=== PATIENT | female | born 1995 | race Caucasian/White ===

== ENCOUNTER 2017-02-21 10:46 | Emergency (ER) | payer OTHER ==
[2017-02-21 11:03] VITALS: BP 142/85; PULSE 98; RESP 20; TEMP 98.1
--- NOTE | 2017-02-21 11:54 | ED ---
General Adult HPI - General Chief complaint: Skin/Abscess/Foreign Body Stated complaint: Rash Time Seen by Provider: 02/21/17 11:20 Source: patient, RN notes reviewed Mode of arrival: ambulatory Limitations: no limitations - History of Present Illness Initial comments: Patient is a 21-year-old female who presents emergency room today with chief complaint of possible bed bugs. She does not that she's noticed some bites to her torso and arms. She states she's noticed them over the last 3 days and very itchy. She states she's look for bed bugs at home has not been able to find any her states she is the only one in the house that has these bites. She denies any other complaints or associated symptoms. Patient denies any recent fever, chills, shortness of breath, chest pain, back pain, abdominal pain, nausea or vomiting, numbness or tingling, dysuria or hematuria, constipation or diarrhea, headaches or visual changes, or any other complaints. - Related Data Home Medications Medication Instructions Recorded Confirmed diphenhydrAMINE [Benadryl] 25 mg PO DAILY PRN 02/21/17 02/21/17 Previous Rx's Medication Instructions Recorded Famotidine [Pepcid] 20 mg PO BID #20 tablet 02/21/17 Hydrocortisone Cream 1 applic TOPICAL TID #1 cream..g. 02/21/17 [Hydrocortisone 1% Cream] diphenhydrAMINE [Benadryl] 1 - 2 tab PO Q6HR PRN #30 capsule 02/21/17 Allergies Allergy/AdvReac Type Severity Reaction Status Date / Time No Known Allergies Allergy Verified 02/21/17 11:05 Review of Systems ROS Statement: Those systems with pertinent positive or pertinent negative responses have been documented in the HPI. ROS Other: All systems not noted in ROS Statement are negative. Past Medical History Past Medical History: No Reported History Additional Past Medical History / Comment(s): History of genital herpes. History of Any Multi-Drug Resistant Organisms: None Reported Past Surgical History: Section Past Anesthesia/Blood Transfusion Reactions: No Reported Reaction Past Psychological History: ADD/ADHD Smoking Status: Current every day smoker Past Alcohol Use History: None Reported Past Drug Use History: None Reported - Past Family History Father Family Medical History: No Reported History General Exam - General Exam Comments Initial Comments: General: The patient is awake and alert, in no distress, and does not appear acutely ill. Eye: Pupils are equal, round and reactive to light, extra-ocular movements are intact. No nystagmus. There is normal conjunctiva bilaterally. No signs of icterus. Ears, nose, mouth and throat: There are moist mucous membranes and no oral lesions. Neck: The neck is supple, there is no tenderness or JVD. Cardiovascular: There is a regular rate and rhythm. No murmur, rub or gallop is appreciated. Respiratory: Lungs are clear to auscultation, respirations are non-labored, breath sounds are equal. No wheezes, stridor, rales, or rhonchi. Musculoskeletal: Normal ROM, no tenderness. Strength 5/5. Sensation intact. Pulses equal bilaterally 2+. Neurological: A&O x 3. CN II-XII intact, There are no obvious motor or sensory deficits. Coordination appears grossly intact. Speech is normal. Skin: Patient does have a few scattered bites throughout the torso and upper extremities. There is an area on the left side of the torso that is linear with 3 bites. Psychiatric: Cooperative, appropriate mood & affect, normal judgment. Limitations: no limitations Course Vital Signs 02/21/17 10:59 Temperature 98.1 F Pulse Rate 98 Respiratory 20 Rate Blood Pressure 142/85 O2 Sat by Pulse 98 Oximetry Medical Decision Making - Medical Decision Making Patient advised that these could be bedbug bites that she should look in the house cleaning everything put anything minutes possible into the dryer to kill days. Advised that she may need: Externally. Advised patient to use hydrocodone cream along with Benadryl and Pepcid for her symptoms. Disposition Clinical Impression: Insect bites Disposition: HOME SELF-CARE Condition: Good Instructions: Insect Bite or Sting (ED) Additional Instructions: Please use medication as discussed. Please follow-up with family doctor in the next 2 days of symptoms have not improved. Please return to emergency room if the symptoms increase or worsen or for any other concerns. Prescriptions: diphenhydrAMINE [Benadryl] 1 - 2 tab PO Q6HR PRN #30 capsule PRN Reason: Allergic Reaction Famotidine [Pepcid] 20 mg PO BID #20 tablet Hydrocortisone Cream [Hydrocortisone 1% Cream] 1 applic TOPICAL TID #1 cream..g. Referrals: None,Stated [Primary Care Provider] - 1-2 days Time of Disposition: 11:53
== END 2017-02-21 12:03 | disposition home or self-care (01) ==
LOC: EC 10:46
DX: S40.861A Insect bite (nonvenomous) of right upper arm, initial encounter (principal); S40.862A Insect bite (nonvenomous) of left upper arm, initial encounter; S30.861A Insect bite (nonvenomous) of abdominal wall, initial encounter; S20.462A Insect bite (nonvenomous) of left back wall of thorax, initial encounter; S20.362A Insect bite (nonvenomous) of left front wall of thorax, initial encounter; S30.860A Insect bite (nonvenomous) of lower back and pelvis, initial encounter; F17.200 Nicotine dependence, unspecified, uncomplicated; W57.XXXA Bitten or stung by nonvenomous insect and other nonvenomous arthropods, initial encounter
CPT/HCPCS: 99282

== ENCOUNTER 2017-08-18 21:37 | Emergency (ER) | payer OTHER ==
[2017-08-18 21:56] VITALS: RESP 18
[2017-08-18] MEDS ORDERED: ACETAMINOPHEN TAB 500 MG TAB PO STA (22:44)
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
--- NOTE | 2017-08-18 23:18 | CT ---
EXAMINATION TYPE: CT facial bones wo con DATE OF EXAM: 08/18/2017 COMPARISON: NONE HISTORY: Pain CT DLP: mGycm Automated exposure control for dose reduction was used. TECHNIQUE: CT scan of the sinuses is performed without contrast, axial images are obtained, coronal r eformatted images are also reviewed. FINDINGS: The orbital margins are intact. There is no evidence of blowout fracture. There is fairly n ormal aeration of the paranasal sinuses. The mandibular ring appears intact. The maxilla appears inta ct. Nasal bone appears intact. Zygomatic arches appear normal. There is no evidence of retro-orbital mass. The globes appear symmetric. There is soft tissue swelling anterior to the right zygoma and rig ht maxilla. IMPRESSION: Right-sided soft tissue swelling. No fracture seen.
--- NOTE | 2017-08-18 23:19 | CT ---
EXAMINATION TYPE: CT brain wo con DATE OF EXAM: 08/18/2017 COMPARISON: NONE HISTORY: Pain CT DLP: mGycm. Automated Exposure Control for Dose Reduction was Utilized. TECHNIQUE: CT scan of the head is performed without contrast. FINDINGS: The ventricles and sulci appear normal. There is no mass effect nor midline shift. There is no sign of intracranial hemorrhage. The calvarium appears intact. There is no evidence for fracture. Skull base appears intact. CONCLUSION: Negative CT scan of the brain.
--- NOTE | 2017-08-18 23:21 | XR ---
EXAMINATION TYPE: XR hand complete RT DATE OF EXAM: 08/18/2017 COMPARISON: NONE HISTORY: Right hand pain TECHNIQUE: 3 views FINDINGS: I see no fracture nor dislocation. Joint spaces are normal. Metacarpals are intact. There a re no erosions. IMPRESSION: Negative right hand exam.
[2017-08-18 23:36] VITALS: BP 114/63; PULSE 94; TEMP 98.3
== END 2017-08-18 23:41 | disposition home or self-care (01) ==
LOC: EC 21:37
DX: H11.31 Conjunctival hemorrhage, right eye (principal); S00.83XA Contusion of other part of head, initial encounter; S60.221A Contusion of right hand, initial encounter; F17.200 Nicotine dependence, unspecified, uncomplicated; Y04.8XXA Assault by other bodily force, initial encounter; Y92.89 Other specified places as the place of occurrence of the external cause
CPT/HCPCS: 70450; 70486; 99284

== ENCOUNTER → 2017-08-20 | Outpatient (CLI) | payer OTHER ==
[2017-08-22 15:21] LABS: Hepatitis B Virus DNA Not detected (Not detected); Hepatitis B Virus DNA, Quant <10 IU/mL (<10); Log HBV IU/mL <1.00 (<1.00)
== END | disposition home or self-care (01) ==
LOC: LABWHC1 15:27
PROVIDERS: ATTEND Pediatrics Adolescent Medicine
DX: Z20.2 Contact with and (suspected) exposure to infections with a predominantly sexual mode of transmission (principal); Z20.5 Contact with and (suspected) exposure to viral hepatitis
CPT/HCPCS: 36415; 87517; 87521

== ENCOUNTER → 2017-10-24 | Outpatient (CLI) | payer OTHER | LOC: LABWHC1 09:57 | PROVIDERS: ATTEND Pediatrics Adolescent Medicine | DX: Z20.2 Contact with and (suspected) exposure to infections with a predominantly sexual mode of transmission (principal); Z20.5 Contact with and (suspected) exposure to viral hepatitis | CPT/HCPCS: 36415; 87521 ==

== ENCOUNTER 2017-12-24 23:10 | Emergency (ER) | payer OTHER ==
[2017-12-25 00:16] VITALS: RESP 18
[2017-12-25 01:42] LABS: Appearance,Urine Cloudy (Clear); Bacteria,Urine Rare /hpf; Bilirubin,Urine Negative (Negative); Blood,Urine Negative (Negative); Budding Yeast,Urine Occasional /hpf; Color,Urine Yellow; Glucose,Urine (UA) Negative (Negative); Ketones,Urine 2+ (Negative); Leukocyte Esterase,Urine Negative (Negative); Mucus,Urine Many /hpf; Nitrite,Urine Negative (Negative); PH, Urine 5.5 (5.0-8.0); Protein,Urine Trace (Negative); RBC,Urine 1 /hpf (0-5); Specific Gravity,Urine 1.021 (1.001-1.035); Squamous Epithelial Cell,Urine 9 /hpf (0-4); Urobilinogen,Urine <2.0 mg/dL (<2.0); WBC,Urine 2 /hpf (0-5)
[2017-12-25] MEDS ORDERED: SODIUM CHLORIDE 0.9% 1,000 ML IV STA (02:26)
--- NOTE | 2017-12-25 02:28 | ED ---
Female Urogenital HPI - General Chief complaint: Urogenital Stated complaint: Discharge-8 wks pg Time Seen by Provider: 12/25/17 02:06 Source: patient, RN notes reviewed Mode of arrival: ambulatory Limitations: no limitations - History of Present Illness Initial comments: This is a 22-year-old female, currently 8 weeks , who presents to the emergency department with chief complaint of abnormal vaginal discharge. Patient states that her last menstrual period was at the end of October. She states that she has not yet followed up with an OVEN HEATER but did have a positive test. Patient states that she has been experiencing daily nausea and vomiting. She states that she has been having random body aches and that today she developed an orange vaginal discharge. She denies any abdominal pain, fevers or chills, chest pain or shortness of breath. Patient has not yet had an ultrasound. - Related Data Previous Rx's Medication Instructions Recorded metroNIDAZOLE [Flagyl] 500 mg PO BID #14 tab 05/16/17 Allergies Allergy/AdvReac Type Severity Reaction Status Date / Time No Known Allergies Allergy Verified 12/25/17 00:16 Review of Systems ROS Statement: Those systems with pertinent positive or pertinent negative responses have been documented in the HPI. ROS Other: All systems not noted in ROS Statement are negative. Past Medical History Past Medical History: No Reported History Additional Past Medical History / Comment(s): History of genital herpes. History of Any Multi-Drug Resistant Organisms: None Reported Past Surgical History: Section Past Anesthesia/Blood Transfusion Reactions: No Reported Reaction Past Psychological History: ADD/ADHD Smoking Status: Former smoker Past Alcohol Use History: None Reported Past Drug Use History: None Reported - Past Family History Father Family Medical History: No Reported History General Exam - General Exam Comments Initial Comments: General: Awake and alert, well-developed; in no apparent distress. HEENT: Head atraumatic, normocephalic. Pupils are equal, round and reactive to light. Extraocular movements intact. Oropharynx moist without erythema or exudate. Neck: Supple. Normal ROM. Cardiovascular: Regular rate and rhythm. No murmurs, rubs or gallops. Chest symmetrical. Respiratory: Lungs clear to auscultation bilaterally. No wheezes, rales or rhonchi. Normal respiratory effort with no use of accessory muscles. Abdomen: Soft, non-tender, non-distended. No rigidity, rebound or guarding. Normal bowel sounds in all 4 quadrants. Musculoskeletal: Normal ROM, no tenderness bilateral upper and lower extremities. Ambulating normally. Skin: [place], warm and dry without rashes or lesions. Neurological: Alert and oriented x3. CN II-XII grossly intact. Speech is fluent and answers are appropriate. No focal neuro deficits. Psychiatric: Normal mood and affect. No overt signs of depression or anxiety noted. Limitations: no limitations Course Vital Signs 12/25/17 00:13 Temperature 98.4 F Pulse Rate 65 Respiratory 18 Rate Blood Pressure 138/78 O2 Sat by Pulse 100 Oximetry Medical Decision Making - Medical Decision Making This is a 22-year-old female, currently approximately 8 weeks' , who presents to the emergency department with chief complaint of abnormal vaginal discharge. Patient reports body aches and an orange-colored vaginal discharge. She has yet to follow-up with OVEN HEATER and has not had an obstetrical ultrasound. CBC, CMP were unremarkable. UA revealed 2+ ketones with no signs of infection. Contaminated with epithelial cells. Recommended hydration. Patient was given IV fluids while in the emergency department. Urine culture is pending. Ultrasound revealed a viable intrauterine at 7 weeks 4 days. No complicating processes. Vital signs have been stable and she is in no acute distress. Recommended following up with her OVEN HEATER, Dr. Blank within 1- 2 days. Patient is in agreement with plan and voices understanding. She will be discharged home at this time. All questions answered. - Lab Data Result diagrams: 12/25/17 02:30 12/25/17 02:30 Lab Results 12/25/17 12/25/17 12/25/17 Range/Units 00:26 02:30 02:30 WBC 8.1 (3.8-10.6) k/uL RBC 4.60 (3.80-5.40) m/uL Hgb 12.6 (11.4-16.0) gm/dL Hct 37.5 (34.0-46.0) % MCV 81.4 (80.0-100.0) fL MCH 27.3 (25.0-35.0) pg MCHC 33.5 (31.0-37.0) g/dL RDW 12.3 (11.5-15.5) % Plt Count 233 (150-450) k/uL Neutrophils % 59 % Lymphocytes % 33 % Monocytes % 4 % Eosinophils % 2 % Basophils % 0 % Neutrophils # 4.8 (1.3-7.7) k/uL Lymphocytes # 2.7 (1.0-4.8) k/uL Monocytes # 0.4 (0-1.0) k/uL Eosinophils # 0.1 (0-0.7) k/uL Basophils # 0.0 (0-0.2) k/uL Sodium 135 L (137-145) mmol/L Potassium 3.7 (3.5-5.1) mmol/L Chloride 103 (98-107) mmol/L Carbon Dioxide 25 (22-30) mmol/L Anion Gap 7 mmol/L BUN 9 (7-17) mg/dL Creatinine 0.50 L (0.52-1.04) mg/dL Est GFR (CKD-EPI)AfAm >90 (>60 ml/min/1.73 sqM) Est GFR (CKD-EPI)NonAf >90 (>60 ml/min/1.73 sqM) Glucose 90 (74-99) mg/dL Calcium 9.2 (8.4-10.2) mg/dL Total Bilirubin 0.3 (0.2-1.3) mg/dL AST 19 (14-36) U/L ALT 25 (9-52) U/L Alkaline Phosphatase 50 (38-126) U/L Total Protein 6.7 (6.3-8.2) g/dL Albumin 4.1 (3.5-5.0) g/dL Urine Color Yellow Urine Appearance Cloudy H (Clear) Urine pH 5.5 (5.0-8.0) Ur Specific [place] 1.021 (1.001-1.035) Urine Protein Trace H (Negative) Urine Glucose (UA) Negative (Negative) Urine Ketones 2+ H (Negative) Urine Blood Negative (Negative) Urine Nitrite Negative (Negative) Urine Bilirubin Negative (Negative) Urine Urobilinogen <2.0 (<2.0) mg/dL Ur Leukocyte Esterase Negative (Negative) Urine RBC 1 (0-5) /hpf Urine WBC 2 (0-5) /hpf Ur Squamous Epith Cells 9 H (0-4) /hpf Urine Bacteria Rare H (None) /hpf Urine Mucus Many H (None) /hpf Urine Yeast (Budding) Occasional H (None) /hpf - Radiology Data Radiology results: report reviewed ultrasound impression: Viable IUP 7 weeks 4 days. Estimated delivery 06/2018. Heart rate 141 bpm. No complicating process seen. Disposition Clinical Impression: First trimester Disposition: HOME SELF-CARE Condition: Good Instructions: First Trimester (ED) Additional Instructions: Please follow-up with Dr. Blank as scheduled. Please follow up with primary care provider within 1-2 days. Return to emergency department if symptoms should worsen or any concerns arise. Is patient prescribed a controlled substance at d/c from ED?: No Referrals: Ce Hylton MD [Primary Care Provider] - 1-2 days Time of Disposition: 03:51
[2017-12-25 03:22] LABS: Basophils % (A) 0 %; Eosinophils # (A) 0.1 k/uL (0-0.7); Eosinophils % (A) 2 %; HCT 37.5 % (34.0-46.0); HGB 12.6 gm/dL (11.4-16.0); Lymphocytes # (A) 2.7 k/uL (1.0-4.8); Lymphocytes % (A) 33 %; MCH 27.3 pg (25.0-35.0); MCHC 33.5 g/dL (31.0-37.0); MCV 81.4 fL (80.0-100.0); Mean Platelet Volume 7.4; Monocytes # (A) 0.4 k/uL (0-1.0); Monocytes % (A) 4 %; Neutrophils # (A) 4.8 k/uL (1.3-7.7); Neutrophils % (A) 59 %; Platelet Count 233 k/uL (150-450); RDW 12.3 % (11.5-15.5); WBC 8.1 k/uL (3.8-10.6)
[2017-12-25 03:30] LABS: ALT 25 U/L (9-52); AST 19 U/L (14-36); Albumin 4.1 g/dL (3.5-5.0); Alkaline Phosphatase 50 U/L (38-126); Anion Gap 7 mmol/L; Blood Urea Nitrogen 9 mg/dL (7-17); Calcium 9.2 mg/dL (8.4-10.2); Carbon Dioxide 25 mmol/L (22-30); Chloride 103 mmol/L (98-107); Glucose 90 mg/dL (74-99); Potassium 3.7 mmol/L (3.5-5.1); Sodium 135 mmol/L (137-145); Total Bilirubin 0.3 mg/dL (0.2-1.3); Total Protein 6.7 g/dL (6.3-8.2)
--- NOTE | 2017-12-25 03:42 | US ---
EXAMINATION TYPE: Transabdominal DATE OF EXAM: 09/11/17 COMPARISON: NONE CLINICAL HISTORY: vaginal dc and pain. Pain EXAM PERFORMED: Transabdominal (TA) EXAM MEASUREMENTS: GESTATIONAL AGE / DATING Physician Established: Not yet established Dates by LMP: (6 weeks/6 days) EDC: 08/14/2018 Dates by First Scan: No previous this is first scan Dates by Current Scan for: (7 weeks/4 days) EDC: 08/09/2018 MATERNAL ANATOMY Uterus: 9.5 x 7.1 x 8.0 cm Right Ovary: 3.2 x 2.2 x 3.2 cm Left Ovary: 3.2 x 1.6 x 2.9 cm Post CDS / Adnexa: wnl Presence of free fluid: no Presence of corpus luteal cyst: Yes Presence of subchorionic bleed: no GESTATION / SURVEY CRL: 1.32 cm (7 weeks/4 days) Yolk Sac (normal less than 6mm): 2mm Heart Rate: 141 bpm Rhythm: Normal IUP: Viable IUP Beta HcG (if available): Not available at this time Viable IUP 7w 4 d ERWIN 08/09/2018 HR 141 BPM IMPRESSION: No complicating process seen.
[2017-12-25 04:09] VITALS: BP 124/56; PULSE 70; TEMP 98.1
== END 2017-12-25 04:09 | disposition home or self-care (01) ==
LOC: EC 23:10
DX: O99.89 Other specified diseases and conditions complicating pregnancy, childbirth and the puerperium (principal); N89.8 Other specified noninflammatory disorders of vagina; Z3A.01 Less than 8 weeks gestation of pregnancy; Z87.891 Personal history of nicotine dependence
CPT/HCPCS: 36415; 76801; 80053; 81001; 85025; 87086; 96360; 99284

== ENCOUNTER 2018-01-11 11:07 | Emergency (ER) | payer OTHER ==
[2018-01-11 11:14] VITALS: BP 163/106; TEMP 98.3
[2018-01-11] MEDS ORDERED: DIPH,PERTUS(ACELL)TETVAC-LF 0.5 ML VIAL IM ONE (11:25)
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
[2018-01-11 11:58] VITALS: PULSE 95; RESP 16
== END 2018-01-11 11:58 | disposition home or self-care (01) ==
LOC: EC 11:07
DX: O9A.311 Physical abuse complicating pregnancy, first trimester (principal); S01.511A Laceration without foreign body of lip, initial encounter; S60.212A Contusion of left wrist, initial encounter; Z87.891 Personal history of nicotine dependence; Z98.890 Other specified postprocedural states; Z23 Encounter for immunization; Y04.0XXA Assault by unarmed brawl or fight, initial encounter; Y93.89 Activity, other specified; Z3A.09 9 weeks gestation of pregnancy
CPT/HCPCS: 90471; 90715; 99283

== ENCOUNTER → 2018-02-06 | Outpatient (CLI) | payer OTHER ==
[2018-02-06 13:09] LABS: Basophils % (A) 0 %; Eosinophils # (A) 0.2 k/uL (0-0.7); Eosinophils % (A) 2 %; HCT 42.1 % (34.0-46.0); HGB 13.3 gm/dL (11.4-16.0); Lymphocytes # (A) 1.7 k/uL (1.0-4.8); Lymphocytes % (A) 24 %; MCH 27.8 pg (25.0-35.0); MCHC 31.6 g/dL (31.0-37.0); Mean Platelet Volume 6.7; Monocytes # (A) 0.2 k/uL (0-1.0); Monocytes % (A) 3 %; Neutrophils # (A) 4.9 k/uL (1.3-7.7); Neutrophils % (A) 70 %; Platelet Count 188 k/uL (150-450); RBC 4.78 m/uL (3.80-5.40)
[2018-02-06 13:17] LABS: MCV 88.1 fL (80.0-100.0)
== END | disposition home or self-care (01) ==
LOC: LABPAT 12:32
PROVIDERS: ATTEND Obstetrics & Gynecology
DX: Z01.812 Encounter for preprocedural laboratory examination (principal)
CPT/HCPCS: 36415; 85025

== ENCOUNTER → 2018-02-06 | Outpatient (CLI) | payer OTHER ==
--- NOTE | 2018-02-06 11:54 | US ---
EXAMINATION TYPE: Transabdominal DATE OF EXAM: 09/11/17 COMPARISON: 12/25/2017 CLINICAL HISTORY: O76 absent heart tones. No heart tones seen at office today by Dr Blank, pelvic pa in and dark vaginal bleeding EXAM PERFORMED: OBTA EXAM MEASUREMENTS: GESTATIONAL AGE / DATING Physician Established: not established Dates by LMP: (13 weeks/0 days) EDC: 08/14/2017 Dates by First Scan: (13 weeks/5 days) EDC: 08/09/2018 Dates by Current Scan for: (8 weeks/5 days) EDC: N/A MATERNAL ANATOMY Uterus: 9.1 x 10.0 x 9.3cm Right Ovary: 3.4 x 3.3 x 2.4cm Left Ovary: 3.8 x 2.7 x 1.4cm Post CDS / Adnexa: wnl Presence of free fluid: no Presence of corpus luteal cyst: 2.0cm right ovary Presence of subchorionic bleed: 4.9cm peristalsing bleed seen anterior to gestational sac GESTATION / SURVEY CRL: 2.1cm (8 weeks/5 days) MSD: irregular borders Yolk Sac (normal less than 6mm): not seen Heart Rate: not detected IUP: Demise IMPRESSION: 1. No heart rate detected. Intrauterine demise likely present. 2. There is discrepancy between the expected gestational age and the current gestational age based on crown-rump length to be compatible with intrauterine size. 3. Pulsating hemorrhage anterior to the gestational sac within the endometrial canal.
== END | disposition home or self-care (01) ==
LOC: RADUSWWP 11:08
PROVIDERS: ATTEND Obstetrics & Gynecology
DX: O76 Abnormality in fetal heart rate and rhythm complicating labor and delivery (principal); O20.9 Hemorrhage in early pregnancy, unspecified; Z3A.08 8 weeks gestation of pregnancy
CPT/HCPCS: 76801

== ENCOUNTER 2018-02-07 07:55 | Day surgery (SDC) | payer OTHER ==
--- NOTE | 2018-02-06 17:26 | P.HPOB ---
History of Present Illness H&P Date: 02/06/18 Chief Complaint: missed ab 22 year old presents for suction D&C for missed ab. fetus is measuring 8 weeks 5 days with no heart tones on US 02/06/18. Review of Systems All systems: negative Constitutional: Denies chills, Denies fever Eyes: denies blurred vision, denies pain Ears, nose, mouth and throat: Denies headache, Denies sore throat Cardiovascular: Denies chest pain, Denies shortness of breath Respiratory: Denies cough Gastrointestinal: Denies abdominal pain, Denies diarrhea, Denies nausea, Denies vomiting Genitourinary: Denies dysuria, Denies hematuria Musculoskeletal: Denies myalgias Integumentary: Denies pruritus, Denies rash Neurological: Denies numbness, Denies weakness Psychiatric: Denies anxiety, Denies depression Endocrine: Denies fatigue, Denies weight change Past Medical History Past Medical History: No Reported History Additional Past Medical History / Comment(s): History of genital herpes. blood type O+ History of Any Multi-Drug Resistant Organisms: None Reported Past Surgical History: Section Past Anesthesia/Blood Transfusion Reactions: No Reported Reaction Past Psychological History: ADD/ADHD Smoking Status: Former smoker Past Alcohol Use History: None Reported Past Drug Use History: None Reported - Past Family History Father Family Medical History: No Reported History Medications and Allergies Home Medications Medication Instructions Recorded Confirmed Type metroNIDAZOLE [Flagyl] 500 mg PO BID #14 tab 05/16/17 08/18/17 Rx Allergies Allergy/AdvReac Type Severity Reaction Status Date / Time No Known Allergies Allergy Verified 01/11/18 11:10 Exam Osteopathic Statement: *. No significant issues noted on an osteopathic structural exam other than those noted in the History and Physical/Consult. Intake and Output 02/06/18 02/06/18 02/06/18 06:59 14:59 22:59 Other: Weight 0 g HEart: RRR Lungs: CTAB Abdomen: soft, nontender Extremeties: neg luis f's Assessment and Plan (1) Missed Status: Acute Code(s): O02.1 - MISSED SNOMED Code(s): 28830156 Plan: 1. suction D&C
[~2018-02-07 07:55] MED LIST: Pre Op ABX Message 1 EACH MISC MISCELLANE ONE
[2018-02-07] MEDS ORDERED: LIDOCAINE 1% 20 ML VIAL (10MG/ML) FOR IV START INTRADERMA ONE (08:25)
[2018-02-07] MEDS ORDERED: DEXAMETHASONE SOD PHOS (MDV) 100 MG/10 ML VIAL IV ONE (08:31)
[2018-02-07] MEDS ORDERED: LACTATED RINGERS 1,000 ML IV ONE (08:32)
[2018-02-07] MEDS ORDERED: ONDANSETRON 4 MG/2 ML VIAL IVP ONE (08:33)
[2018-02-07] MEDS ORDERED: LIDOCAINE 1% INJ 10MG/ML (20 ML MDV) ONE (09:43)
[2018-02-07] MEDS ORDERED: fentaNYL (PF) 50 MCG/ML 2 ML AMP ONE (09:43)
[2018-02-07] MEDS ORDERED: PROPOFOL 10 MG/ML 20 ML VIAL IV ONE (09:43)
[2018-02-07] MEDS ORDERED: MIDAZOLAM 2 MG/2 ML VIAL ONE (09:43)
[2018-02-07 10:21] VITALS: TEMP 97
--- NOTE | 2018-02-07 10:30 | P.OP ---
Date of Procedure: 02/07/18 Preoperative Diagnosis: 1. Missed Postoperative Diagnosis: 1. Same Procedure(s) Performed: Suction D&C Anesthesia: MAC Surgeon: Winter Blank Estimated Blood Loss (ml): 250 IV fluids (ml): 300 Urine output (ml): 10 Pathology: other (Products of conception) Condition: stable Disposition: PACU Description of Procedure: Patient seen the operating room where general anesthesia was obtained without difficulty. She is prepped and draped in normal sterile fashion dorsal lithotomy position, legs placed in the candycane stirrups. Weighted speculum placed in the vagina. Anterior lip the cervix was grasped with single-tooth tenaculum. The cervix was dilated to #10 Hegar dilator. The #10 curved suction curet was introduced into the uterus. This passed several times to obtain tissue and blood. Sharp curet was used to ensure all tissue was removed. The suction curet was passed a few more times. Excellent hemostasis was achieved. Patient procedure well, sponge and instrument counts are correct 2. She was taken to recovery room in stable conditions.
[2018-02-07] MEDS ORDERED: KETOROLAC 30 MG/ML 1 ML VIAL IVP ONE (10:47)
[2018-02-07 11:17] VITALS: RESP 14
[2018-02-07 11:34] VITALS: BP 117/71; PULSE 76
== END 2018-02-07 11:45 | disposition home or self-care (01) ==
LOC: OR 07:55
PROVIDERS: ATTEND Obstetrics & Gynecology
DX: O02.1 Missed abortion (principal); F90.9 Attention-deficit hyperactivity disorder, unspecified type; Z87.891 Personal history of nicotine dependence; Z86.19 Personal history of other infectious and parasitic diseases
CPT/HCPCS: 59820; 86900; 86901; 88305; 86850; J2250; J2405; J2001; J3010; J1885; J1100; J2704

== ENCOUNTER 2018-02-12 14:20 | Emergency (ER) | payer OTHER ==
[2018-02-12 14:57] VITALS: TEMP 98.4
--- NOTE | 2018-02-12 16:06 | ED ---
Female Urogenital HPI - General Chief complaint: Vaginal Bleeding Stated complaint: post D&C clotting & chest pain Time Seen by Provider: 02/12/18 15:41 Source: patient, RN notes reviewed Mode of arrival: ambulatory Limitations: no limitations - History of Present Illness Initial comments: This is a 22-year-old female who presents to the emergency department with chief complaint of postoperative vaginal bleeding and chest pain. Patient states that on she had a D&C performed by Dr. Blank for a missed . Patient states that she worked through the weekend and did have some mild vaginal bleeding and clotting. She states that today she has had a large amount of clots and is bleeding more than usual. Patient also reports lower abdominal cramping. She denies any abnormal vaginal discharge. Patient also complains of sharp stabbing intermittent chest pain. She states this was present prior to surgery. She states that there are no exacerbating or relieving factors. She states that they come on while she is laying there. States that it is not pleuritic in nature. States that the pain is normally left-sided but it does move around the chest. She denies any shortness of breath, fevers or chills, nausea or vomiting. - Related Data Previous Rx's Medication Instructions Recorded Ibuprofen [Motrin] 600 mg PO Q6HR PRN #30 tab 02/07/18 Allergies Allergy/AdvReac Type Severity Reaction Status Date / Time No Known Allergies Allergy Verified 02/12/18 16:00 Review of Systems ROS Statement: Those systems with pertinent positive or pertinent negative responses have been documented in the HPI. ROS Other: All systems not noted in ROS Statement are negative. Past Medical History Past Medical History: No Reported History Additional Past Medical History / Comment(s): History of genital herpes. History of Any Multi-Drug Resistant Organisms: None Reported Past Surgical History: Section Additional Past Surgical History / Comment(s): D&C Past Anesthesia/Blood Transfusion Reactions: No Reported Reaction Past Psychological History: ADD/ADHD Smoking Status: Current every day smoker Past Alcohol Use History: None Reported Past Drug Use History: None Reported - Past Family History Father Family Medical History: No Reported History General Exam - General Exam Comments Initial Comments: General: Awake and alert, well-developed; in no apparent distress. HEENT: Head atraumatic, normocephalic. Pupils are equal, round and reactive to light. Extraocular movements intact. Oropharynx moist without erythema or exudate. Neck: Supple. Normal ROM. Cardiovascular: Regular rate and rhythm. No murmurs, rubs or gallops. Chest symmetrical. Respiratory: Lungs clear to auscultation bilaterally. No wheezes, rales or rhonchi. Normal respiratory effort with no use of accessory muscles. Abdomen: Soft,non-distended. Tenderness on palpation of lower abdomen with guarding. No rigidity or rebound. Normal bowel sounds in all 4 quadrants. Musculoskeletal: Normal ROM, no tenderness bilateral upper and lower extremities. Skin: [place], warm and dry without rashes or lesions. Neurological: Alert and oriented x3. CN II-XII grossly intact. Speech is fluent and answers are appropriate. No focal neuro deficits. Psychiatric: Normal mood and affect. No overt signs of depression or anxiety noted. Limitations: no limitations Course Vital Signs 02/12/18 14:56 Temperature 98.4 F Pulse Rate 87 Respiratory 20 Rate Blood Pressure 120/76 O2 Sat by Pulse 99 Oximetry Medical Decision Making - Medical Decision Making This is a 22-year-old female who presents to the emergency department with chief complaint of postoperative vaginal bleeding and chest pain. Patient underwent a D&C last for a missed . This was performed by Dr. Blank. Patient states that today she has developed increased vaginal bleeding and clots. Ultrasound was obtained to rule out retained products. This revealed endometrial stripe of 1.4 cm with no evidence for masses or hypervascularity. Patient also complained of chest pain but did state that this was present prior to D&C. A full discussion was held with patient regarding obtaining a d-dimer. Patient wished to have this test performed. This was elevated 1.36. A CTA of the chest was obtained which revealed no acute abnormalities. Chest x-ray was also negative. CBC and CMP are unremarkable. Patient's vital signs are stable and she is in no acute distress. She will be discharged home at this time with recommendation to follow-up with [facility] within the next 1-2 days. She is in agreement with plan and voices understanding. All questions were answered. - Lab Data Result diagrams: 02/12/18 16:35 02/12/18 16:35 Lab Results 02/12/18 02/12/18 02/12/18 Range/Units 16:35 16:35 16:35 WBC 6.5 (3.8-10.6) k/uL RBC 4.12 (3.80-5.40) m/uL Hgb 11.5 (11.4-16.0) gm/dL Hct 34.9 (34.0-46.0) % MCV 84.7 (80.0-100.0) fL MCH 27.9 (25.0-35.0) pg MCHC 32.9 (31.0-37.0) g/dL RDW 13.0 (11.5-15.5) % Plt Count 233 (150-450) k/uL Neutrophils % 70 % Lymphocytes % 22 % Monocytes % 4 % Eosinophils % 2 % Basophils % 0 % Neutrophils # 4.5 (1.3-7.7) k/uL Lymphocytes # 1.5 (1.0-4.8) k/uL Monocytes # 0.3 (0-1.0) k/uL Eosinophils # 0.2 (0-0.7) k/uL Basophils # 0.0 (0-0.2) k/uL PT 9.4 (9.0-12.0) sec INR 0.9 (<1.2) APTT 24.6 (22.0-30.0) sec D-Dimer 1.36 H (<0.60) mg/L FEU Sodium 139 (137-145) mmol/L Potassium 4.2 (3.5-5.1) mmol/L Chloride 108 H (98-107) mmol/L Carbon Dioxide 24 (22-30) mmol/L Anion Gap 7 mmol/L BUN 7 (7-17) mg/dL Creatinine 0.53 (0.52-1.04) mg/dL Est GFR (CKD-EPI)AfAm >90 (>60 ml/min/1.73 sqM) Est GFR (CKD-EPI)NonAf >90 (>60 ml/min/1.73 sqM) Glucose 100 H (74-99) mg/dL Calcium 8.8 (8.4-10.2) mg/dL Total Bilirubin 0.2 (0.2-1.3) mg/dL AST 24 (14-36) U/L ALT 28 (9-52) U/L Alkaline Phosphatase 55 (38-126) U/L Total Protein 6.4 (6.3-8.2) g/dL Albumin 3.7 (3.5-5.0) g/dL Urine Color Urine Appearance (Clear) Urine RBC (0-5) /hpf Urine Mucus (None) /hpf 02/12/18 Range/Units 16:37 WBC (3.8-10.6) k/uL RBC (3.80-5.40) m/uL Hgb (11.4-16.0) gm/dL Hct (34.0-46.0) % MCV (80.0-100.0) fL MCH (25.0-35.0) pg MCHC (31.0-37.0) g/dL RDW (11.5-15.5) % Plt Count (150-450) k/uL Neutrophils % % Lymphocytes % % Monocytes % % Eosinophils % % Basophils % % Neutrophils # (1.3-7.7) k/uL Lymphocytes # (1.0-4.8) k/uL Monocytes # (0-1.0) k/uL Eosinophils # (0-0.7) k/uL Basophils # (0-0.2) k/uL PT (9.0-12.0) sec INR (<1.2) APTT (22.0-30.0) sec D-Dimer (<0.60) mg/L FEU Sodium (137-145) mmol/L Potassium (3.5-5.1) mmol/L Chloride (98-107) mmol/L Carbon Dioxide (22-30) mmol/L Anion Gap mmol/L BUN (7-17) mg/dL Creatinine (0.52-1.04) mg/dL Est GFR (CKD-EPI)AfAm (>60 ml/min/1.73 sqM) Est GFR (CKD-EPI)NonAf (>60 ml/min/1.73 sqM) Glucose (74-99) mg/dL Calcium (8.4-10.2) mg/dL Total Bilirubin (0.2-1.3) mg/dL AST (14-36) U/L ALT (9-52) U/L Alkaline Phosphatase (38-126) U/L Total Protein (6.3-8.2) g/dL Albumin (3.5-5.0) g/dL Urine Color Red Urine Appearance Bloody H (Clear) Urine RBC >182 H (0-5) /hpf Urine Mucus Rare H (None) /hpf - EKG Data EKG Comments: 16:20:34. Sinus rhythm with marked sinus arrhythmia. Ventricular rate 74 bpm, MA interval 128, QRS duration 92, QT/QTC 386/428 - Radiology Data Radiology results: report reviewed Chest x-ray impression: No acute process. Complete pelvic transvaginal ultrasound impression: Endometrial stripe thickness 1.4 cm. No visualized focal mass or Doppler hypervascularity. CT angio chest impression: No acute process. Disposition Clinical Impression: History of dilation and curettage, Vaginal bleeding, Atypical chest pain Disposition: HOME SELF-CARE Condition: Good Instructions: Dilation and Curettage (DC), Chest Pain (ED) Additional Instructions: Please follow-up with Dr. Blank within 1-2 days. Please follow up with primary care provider within 1-2 days. Return to emergency department if symptoms should worsen or any concerns arise. Is patient prescribed a controlled substance at d/c from ED?: No Referrals: Ce Hylton MD [Primary Care Provider] - 1-2 days Time of Disposition: 18:52
[2018-02-12 16:50] LABS: Basophils % (A) 0 %; Eosinophils # (A) 0.2 k/uL (0-0.7); Eosinophils % (A) 2 %; HCT 34.9 % (34.0-46.0); HGB 11.5 gm/dL (11.4-16.0); Lymphocytes # (A) 1.5 k/uL (1.0-4.8); Lymphocytes % (A) 22 %; MCH 27.9 pg (25.0-35.0); MCHC 32.9 g/dL (31.0-37.0); MCV 84.7 fL (80.0-100.0); Mean Platelet Volume 6.9; Monocytes # (A) 0.3 k/uL (0-1.0); Monocytes % (A) 4 %; Neutrophils # (A) 4.5 k/uL (1.3-7.7); Neutrophils % (A) 70 %; Platelet Count 233 k/uL (150-450); RBC 4.12 m/uL (3.80-5.40); WBC 6.5 k/uL (3.8-10.6)
[2018-02-12 17:04] LABS: ALT 28 U/L (9-52); AST 24 U/L (14-36); Albumin 3.7 g/dL (3.5-5.0); Alkaline Phosphatase 55 U/L (38-126); Anion Gap 7 mmol/L; Blood Urea Nitrogen 7 mg/dL (7-17); Calcium 8.8 mg/dL (8.4-10.2); Carbon Dioxide 24 mmol/L (22-30); Chloride 108 mmol/L (98-107); Glucose 100 mg/dL (74-99); INR 0.9 (<1.2); Partial Thromboplastin Time 24.6 sec (22.0-30.0); Potassium 4.2 mmol/L (3.5-5.1); Prothrombin Time 9.4 sec (9.0-12.0); Sodium 139 mmol/L (137-145); Total Bilirubin 0.2 mg/dL (0.2-1.3); Total Protein 6.4 g/dL (6.3-8.2)
[2018-02-12 17:14] LABS: Mucus,Urine Rare /hpf; RBC,Urine >182 /hpf (0-5)
[2018-02-12 17:19] LABS: D-Dimer 1.36 mg/L FEU (<0.60)
[2018-02-12 17:19] LABS: Appearance,Urine Bloody (Clear); Color,Urine Red
--- NOTE | 2018-02-12 17:42 | US ---
EXAMINATION TYPE: US pelvis complete transvag DATE OF EXAM: 02/12/2018 COMPARISON: 02/06/2018 CLINICAL HISTORY: hx d c. r/o retained product. demise in January, D&C 5 days ago. Bleeding TECHNIQUE: Transabdominal sonographic images of the pelvis were acquired. Transvaginal sonographic images were medically necessary to better assess the following anatomy: Endometrium Date of LMP: Unsure EXAM MEASUREMENTS: Uterus: 8.3 x 5.0 x 6.6 cm Endometrial Stripe: Maximum thickness measures 1.4 cm within the uterine fundus. By ultrasound criter ia alone it is difficult to completely exclude retained products with endometrial stripe thickness gr eater than 1 cm. However, there is no focal endometrial mass and no Doppler hypervascularity within t he endometrial cavity. Right Ovary: 3.4 x 2.3 x 1.8 cm Left Ovary: Not visualized with certainty 1. Uterus: Anteverted 2. Endometrium: Heterogeneous 3. Right Ovary: wnl 4. Left Ovary: Not visualized with certainty Spectral, color and waveform doppler imaging shows good arterial and venous flow within the right o vary; there is no evidence for ovarian torsion in the right ovary. 5. Bilateral Adnexa: wnl 6. Posterior cul-de-sac: wnl IMPRESSION: Endometrial stripe thickness 1.4 cm. No visualized focal mass or Doppler hypervascularity.
--- NOTE | 2018-02-12 18:13 | XR ---
EXAMINATION: XR chest 2V DATE AND TIME: 02/12/2018 5:23 PM CLINICAL INDICATION: chest pain TECHNIQUE: PA and lateral COMPARISON: None. FINDINGS: The lungs are clear. The pleural spaces are negative. The cardiac silhouette is not enlarged. The remainder of the mediastinal silhouette is unremarkable. The skeletal structures and soft tissues are negative for acute findings. IMPRESSION: NO ACUTE PROCESS.
--- NOTE | 2018-02-12 18:42 | CT ---
EXAMINATION TYPE: CT angio chest with contrast and with 3-D reconstructions DATE OF EXAM: 02/12/2018 6:07 PM COMPARISON: XR HISTORY: CHEST PAIN AND SOB POST D AND C X5 DAYS AGO CT DLP: 119 mGycm Automated exposure control for dose reduction was used. CONTRAST: CTA scan of the thorax is performed with IV Contrast, patient injected with 70 mL of Isovue 370, pulmonary embolism protocol. 3-D reconstruction renderings. FINDINGS: LUNGS: The lungs are grossly clear, there is no concerning parenchymal mass or nodule identified. T here is no pleural effusion or pneumothorax seen. The tracheobronchial tree is patent. MEDIASTINUM: There is satisfactory enhancement of the pulmonary artery and its branches, there is no CT evidence for pulmonary embolism. Aorta is unremarkable. No cardiomegaly or pericardial effusion. There are no greater than 1 cm hilar or mediastinal lymph nodes. OTHER: No additional significant abnormality is seen. IMPRESSION: NO ACUTE PROCESS.
[2018-02-12 19:17] VITALS: BP 123/59; PULSE 60; RESP 18
== END 2018-02-12 19:17 | disposition home or self-care (01) ==
LOC: EC 14:20
DX: N99.820 Postprocedural hemorrhage of a genitourinary system organ or structure following a genitourinary system procedure (principal); R07.89 Other chest pain; R79.1 Abnormal coagulation profile; F17.200 Nicotine dependence, unspecified, uncomplicated
CPT/HCPCS: 99284 ×2; 36415; 93005; 85379; 80053; 85025; 85610; 85730; 81001; 71046; 93976; 76856; 76830; 71275; Q9967

== ENCOUNTER 2018-07-08 14:29 | Emergency (ER) | payer OTHER ==
[2018-07-08 14:35] VITALS: RESP 18
[2018-07-08] MEDS ORDERED: KETOROLAC 30 MG/ML 1 ML VIAL IVP STA (14:48)
[2018-07-08] MEDS ORDERED: SODIUM CHLORIDE 0.9% 500 ML 500 ML IV STA (14:48)
[2018-07-08] MEDS ORDERED: PANTOPRAZOLE 40 MG/10 ML VIAL IVP STA (14:49)
--- NOTE | 2018-07-08 14:52 | ED ---
Chest Pain HPI - General Chief Complaint: Chest Pain Stated Complaint: Chest pain Time Seen by Provider: 07/08/18 14:36 Source: patient, RN notes reviewed, old records reviewed Mode of arrival: ambulatory Limitations: no limitations - History of Present Illness Initial Comments: 23-year-old female presents emergency Department history of multiple complaints. Patient states that she has been having 2 days of left-sided chest pain. Patient states that she will comply with the pain. Patient states that she was recently treated for [facility] infection from [facility] on Sunday. She denies any other complaints including nausea or vomiting. Patient states that she has had some associated shortness of breath with this. Patient states she is not asthmatic. She also states that she recently did start control. - Related Data Home Medications Medication Instructions Recorded Confirmed Falmina 1 tab PO DAILY 07/08/18 07/08/18 Previous Rx's Medication Instructions Recorded Famotidine [Pepcid] 20 mg PO DAILY #20 tablet 07/08/18 methylPREDNISolone Dose Pack 4 mg PO DIRECTED #21 package 07/08/18 [Medrol Dose Pack] Allergies Allergy/AdvReac Type Severity Reaction Status Date / Time No Known Allergies Allergy Verified 07/08/18 16:24 Review of Systems ROS Statement: Those systems with pertinent positive or pertinent negative responses have been documented in the HPI. ROS Other: All systems not noted in ROS Statement are negative. EKG Findings - EKG Comments: EKG Findings:: EKG shows normal sinus rhythm with sinus arrhythmia. Cannot rule out anterior infarct. Abnormal EKG. Ventricular rate of 80 bpm period. It was 122 ms. QRS duration 92 ms. QT QTc is 429 ms. Past Medical History Past Medical History: No Reported History Additional Past Medical History / Comment(s): History of genital herpes. History of Any Multi-Drug Resistant Organisms: None Reported, C-DIFF Date of last positivie culture/infection: 2015 Past Surgical History: Section Additional Past Surgical History / Comment(s): D&C Past Anesthesia/Blood Transfusion Reactions: No Reported Reaction Past Psychological History: ADD/ADHD Smoking Status: Current every day smoker Past Alcohol Use History: None Reported, Occasional Past Drug Use History: Marijuana - Past Family History Father Family Medical History: No Reported History General Exam - General Exam Comments Initial Comments: Well-appearing 23-year-old female. Alert and oriented 3. No acute distress. General: Well appearing, well nourished, in no distress. Oriented x 3, normal mood and affect . Ambulating without difficulty. Skin: Good turgor, no rash, unusual bruising or prominent lesions Hair: Normal texture and distribution. HEENT: Head: Normocephalic, atraumatic, no visible or palpable masses, depressions, or scaring. Eyes: Visual acuity intact, conjunctiva clear, sclera non-icteric, EOM intact, PERRL. Ears: EACs clear, TMs translucent & cone of light visualized. hearing intact. Nose: No external lesions, mucosa non-inflamed, septum and turbinates normal Mouth: Mucous membranes moist, no mucosal lesions. Teeth/Gums: No obvious caries or periodontal disease. No gingival inflammation or significant resorption. Pharynx: Mucosa non-inflamed, no tonsillar hypertrophy or exudate Neck: Supple, without lesions, bruits, or adenopathy, thyroid non-enlarged and non-tender Heart: No cardiomegaly or thrills; regular rate and rhythm, no murmur or gallop Lungs: Clear to auscultation and percussion Abdomen: Bowel sounds normal, no tenderness, organomegaly, masses, or hernia Extremities: No amputations or deformities, cyanosis, edema or varicosities, peripheral pulses intact Musculoskeletal: Normal gait and station. No misalignment, asymmetry, crepitation, defects, tenderness, masses, effusions, decreased range of motion, instability, atrophy or abnormal strength or tone in the head, neck, spine, ribs , pelvis or extremities. Neurologic: CN 2-12 normal. Sensation to pain, touch, and proprioception normal. DTRs normal in upper and lower extremities. No pathologic reflexes. Psychiatric: Oriented X3, intact recent and remote memory, judgment and insight , normal mood and affect. Limitations: no limitations Course Vital Signs 07/08/18 07/08/18 14:31 15:41 Temperature 98.5 F Pulse Rate 102 H 77 Respiratory 18 18 Rate Blood Pressure 145/87 132/76 O2 Sat by Pulse 99 Oximetry Chest Pain MDM - MDM 23-year-old female presents return today with complaints of left-sided chest pain. She reports that she woke up with a gripping pain. Patient was given IV fluids and laboratory obtained. Patient's EKG was reviewed and normal. Lab work including troponin and d-dimer are negative. Urinalysis did show some RBCs in white blood cells. She recently started taking control this week. Discusses could likely just be with fluctuation hormones that she's having this breakthrough bleeding. Patient was also treated for STDs earlier this week. I discussed that she's had received treatment for this week and do urine culture if it is any other concern for infection we will call her. CXR Peribronchial cuffing could represent bronchitis or asthma. Otherwise no acute critical pulmonary process. Discussed at this time I'll treat the Patient for her costochondritis-like symptoms with steroids and pepcid has had a component seems to be like GERD. We'll put her on a antacid medication. Discussed following up with her PCP. All questions answered return parameters were discussed. Disposition Clinical Impression: Costochondritis, Atypical chest pain Disposition: HOME SELF-CARE Condition: Good Instructions (If sedation given, give patient instructions): Costochondritis ( ED) Additional Instructions: Patient advised to follow-up with primary care physician. Take medication as prescribed. Making sure that you discontinue smoking. Recommended returning to emergency department if any alarming signs or symptoms occur. Patient should rest, remain hydrated. When the symptoms occur also take NSAIDs that her medication such as Motrin or Tylenol. Prescriptions: Famotidine [Pepcid] 20 mg PO DAILY #20 tablet methylPREDNISolone Dose Pack [Medrol Dose Pack] 4 mg PO DIRECTED #21 package Is patient prescribed a controlled substance at d/c from ED?: No Referrals: Ce Hylton MD [Primary Care Provider] - 1-2 days Time of Disposition: 16:42
[2018-07-08 15:18] LABS: Anisocytosis Slight; Basophils % (A) 0 %; Eosinophils # (A) 0.2 k/uL (0-0.7); Eosinophils % (A) 2 %; HCT 40.5 % (34.0-46.0); HGB 13.5 gm/dL (11.4-16.0); Lymphocytes # (A) 1.4 k/uL (1.0-4.8); Lymphocytes % (A) 14 %; MCH 26.9 pg (25.0-35.0); MCHC 33.2 g/dL (31.0-37.0); MCV 80.9 fL (80.0-100.0); Mean Platelet Volume 6.9; Monocytes # (A) 0.4 k/uL (0-1.0); Monocytes % (A) 4 %; Neutrophils % (A) 78 %; Platelet Count 253 k/uL (150-450); RBC 5.01 m/uL (3.80-5.40); RDW 16.1 % (11.5-15.5); WBC 10.3 k/uL (3.8-10.6)
[2018-07-08 15:29] LABS: ALT 28 U/L (9-52); AST 26 U/L (14-36); Albumin 4.3 g/dL (3.5-5.0); Alkaline Phosphatase 43 U/L (38-126); Amylase 62 U/L (30-110); Anion Gap 7 mmol/L; Blood Urea Nitrogen 9 mg/dL (7-17); Calcium 9.5 mg/dL (8.4-10.2); Carbon Dioxide 25 mmol/L (22-30); Chloride 107 mmol/L (98-107); Glucose 97 mg/dL (74-99); Lipase 38 U/L (23-300); Magnesium 1.9 mg/dL (1.6-2.3); Potassium 4.1 mmol/L (3.5-5.1); Sodium 139 mmol/L (137-145); Total Bilirubin 0.3 mg/dL (0.2-1.3); Total Protein 6.9 g/dL (6.3-8.2)
[2018-07-08 15:39] LABS: D-Dimer 0.3 mg/L FEU (<0.60); INR 0.9 (<1.2); Partial Thromboplastin Time 24.6 sec (22.0-30.0); Prothrombin Time 9.7 sec (9.0-12.0)
[2018-07-08 16:05] LABS: Appearance,Urine Cloudy (Clear); Bilirubin,Urine Negative (Negative); Blood,Urine Trace (Negative); Color,Urine Yellow; Glucose,Urine (UA) Negative (Negative); Ketones,Urine Negative (Negative); Leukocyte Esterase,Urine Small (Negative); Mucus,Urine Moderate /hpf; Nitrite,Urine Negative (Negative); Protein,Urine Trace (Negative); RBC,Urine 15 /hpf (0-5); Squamous Epithelial Cell,Urine 2 /hpf (0-4); Urobilinogen,Urine <2.0 mg/dL (<2.0)
--- NOTE | 2018-07-08 16:30 | XR ---
EXAMINATION TYPE: XR chest 2V DATE OF EXAM: 07/08/2018 COMPARISON: 02/12/2018 HISTORY: 23-year-old female with chest pain TECHNIQUE: PA and lateral views FINDINGS: Bilateral nipple rings. Mild peribronchial cuffing. No consolidation or pleural effusion. Heart is no rmal size. Aorta and pulmonary vasculature within normal limits. IMPRESSION: Mild peribronchial cuffing could reflect bronchitis or asthma. Otherwise, no acute cardiopulmonary pr ocess.
[2018-07-08 17:17] VITALS: BP 127/78; PULSE 80; TEMP 98.1
== END 2018-07-08 17:17 | disposition home or self-care (01) ==
LOC: EC 14:29
DX: M94.0 Chondrocostal junction syndrome [Tietze] (principal); R06.02 Shortness of breath; F17.200 Nicotine dependence, unspecified, uncomplicated; Z79.3 Long term (current) use of hormonal contraceptives
CPT/HCPCS: 36415; 93005; 85379; 80053; 82150; 83690; 83735; 84484; 85025; 85610; 85730; 81001; 81025; 87086; 71046; 99285; 96374; 96375; 96361; J1885; C9113

== ENCOUNTER 2019-03-14 10:48 | Emergency (ER) | payer OTHER ==
[2019-03-14 11:10] VITALS: BP 118/64; PULSE 75; RESP 16; TEMP 98.6
[2019-03-14 12:07] LABS: Basophils % (A) 0 %; Eosinophils # (A) 0.2 k/uL (0-0.7); Eosinophils % (A) 2 %; HCT 43.6 % (34.0-46.0); HGB 14.1 gm/dL (11.4-16.0); Lymphocytes # (A) 1.8 k/uL (1.0-4.8); Lymphocytes % (A) 23 %; MCH 27.5 pg (25.0-35.0); MCHC 32.3 g/dL (31.0-37.0); MCV 85.2 fL (80.0-100.0); Mean Platelet Volume 7.3; Monocytes # (A) 0.3 k/uL (0-1.0); Monocytes % (A) 4 %; Neutrophils # (A) 5.4 k/uL (1.3-7.7); Neutrophils % (A) 69 %; Platelet Count 219 k/uL (150-450); RBC 5.12 m/uL (3.80-5.40); RDW 13.2 % (11.5-15.5); WBC 7.9 k/uL (3.8-10.6)
[2019-03-14 12:22] LABS: INR 0.9 (<1.2); Partial Thromboplastin Time 27.3 sec (22.0-30.0); Prothrombin Time 10.1 sec (9.0-12.0)
[2019-03-14 12:26] LABS: ALT 22 U/L (9-52); AST 25 U/L (14-36); African American GFR (CKD) >90 (>60 ml/min/1.73 sqM); Albumin 4.5 g/dL (3.5-5.0); Alkaline Phosphatase 45 U/L (38-126); Anion Gap 8 mmol/L; Blood Urea Nitrogen 8 mg/dL (7-17); Calcium 9.3 mg/dL (8.4-10.2); Carbon Dioxide 26 mmol/L (22-30); Chloride 103 mmol/L (98-107); Glucose 76 mg/dL (74-99); Potassium 4.1 mmol/L (3.5-5.1); Sodium 137 mmol/L (137-145); Total Bilirubin 0.5 mg/dL (0.2-1.3); Total Protein 7.2 g/dL (6.3-8.2)
--- NOTE | 2019-03-14 12:59 | US ---
EXAMINATION TYPE: Transabdominal DATE OF EXAM: 03/14/2019 12:37 PM COMPARISON: NONE CLINICAL HISTORY: pain. Pt states episode of light vaginal spotting today EXAM PERFORMED: Transabdominal (TA) EXAM MEASUREMENTS: GESTATIONAL AGE / DATING Physician Established: Not yet established Dates by LMP: (5 weeks/2 days) EDC: 11/12/2019 Dates by First Scan: No prior Dates by Current Scan for: (5 weeks/2 days) EDC: 11/12/2019 MATERNAL ANATOMY Uterus: 10.1 x 4.1 x 6.1 cm Right Ovary: 3.6 x 2.1 x 3.6 cm Left Ovary: 2.5 x 1.6 x 2.1 cm Post CDS / Adnexa: wnl Presence of free fluid: No Presence of corpus luteal cyst: Right Ovary= 1.8 x 2.2 x 2.5 cm Presence of subchorionic bleed: No GESTATION / SURVEY CRL: Too early to visualize MSD: 1.1 cm (5 weeks/2 days) Yolk Sac (normal less than 6mm): 2mm Date of LMP: 02/05/2019 Beta HcG (if available): Not available at this time Early gestational sac with yolk sac visualized within uterus, too early to visualize CRL. Implantat ion a slightly low lying. IMPRESSION: Intrauterine gestational sac and yolk sac are seen however no pole is yet seen. Con siderations are for anembryonic , early normal intrauterine , or spontaneous aborti on. No the implantation appears slightly low-lying in the uterus and moderate narrowing with short-te rm follow-up ultrasound (5-7 days) is recommended as well as serum serial follow-up beta hCGs. Dates would be concordant with last menstrual period.
[2019-03-14 13:21] LABS: HCG,Quantitative Serum 17606.4 mIU/mL
[2019-03-14 13:40] LABS: Appearance,Urine Clear (Clear); Bilirubin,Urine Negative (Negative); Blood,Urine Negative (Negative); Color,Urine Colorless; Glucose,Urine (UA) Negative (Negative); Ketones,Urine Negative (Negative); Leukocyte Esterase,Urine Negative (Negative); Nitrite,Urine Negative (Negative); Protein,Urine Negative (Negative); Specific Gravity,Urine 1.002 (1.001-1.035); Urobilinogen,Urine <2.0 mg/dL (<2.0)
--- NOTE | 2019-03-14 14:08 | ED ---
Abdominal Pain HPI - General Chief Complaint: Abdominal Pain Stated Complaint: 6wks preg, bleeding Time Seen by Provider: 03/14/19 11:10 Source: patient Mode of arrival: ambulatory Limitations: no limitations - History of Present Illness Initial Comments: The patient is a 23-year-old female who presents to the emergency department with reported vaginal bleeding. She reports that she is approximately 6 weeks . She is . She has yet to establish care. Does have an ultrasound scheduled for the and an appointment on the . She is to be following up with Dr. Blank. Reports that today she began having some bright red vaginal bleeding. Denies any vaginal discharge. Admits to mild lower abdominal cramping. Denies any dysuria, hematuria or difficulty voiding. Denies any changes in her bowel movements including diarrhea, constipation, melanotic stools or hematochezia. Denies any abdominal trauma. No concern for any such transmitted infections. Denies any syncope or presyncope. There are no other alleviating, precipitating or modifying factors - Related Data Home Medications Medication Instructions Recorded Confirmed Falmina 1 tab PO DAILY 07/08/18 07/08/18 Previous Rx's Medication Instructions Recorded Famotidine [Pepcid] 20 mg PO DAILY #20 tablet 07/08/18 methylPREDNISolone Dose Pack 4 mg PO DIRECTED #21 package 07/08/18 [Medrol Dose Pack] Allergies Allergy/AdvReac Type Severity Reaction Status Date / Time No Known Allergies Allergy Verified 03/14/19 11:07 Review of Systems ROS Statement: Those systems with pertinent positive or pertinent negative responses have been documented in the HPI. ROS Other: All systems not noted in ROS Statement are negative. Past Medical History Past Medical History: No Reported History Additional Past Medical History / Comment(s): History of genital herpes. History of Any Multi-Drug Resistant Organisms: None Reported, C-DIFF Date of last positivie culture/infection: 2015 Past Surgical History: Section Additional Past Surgical History / Comment(s): D&C Past Anesthesia/Blood Transfusion Reactions: No Reported Reaction Past Psychological History: ADD/ADHD Smoking Status: Current every day smoker Past Alcohol Use History: None Reported, Occasional Past Drug Use History: Marijuana - Past Family History Father Family Medical History: No Reported History General Exam Limitations: no limitations General appearance: alert, in no apparent distress Head exam: Present: atraumatic, normocephalic, normal inspection Eye exam: Present: normal appearance, PERRL, EOMI. Absent: scleral icterus, conjunctival injection, periorbital swelling ENT exam: Present: normal exam, mucous membranes moist Neck exam: Present: normal inspection. Absent: tenderness, meningismus, lymphadenopathy Respiratory exam: Present: normal lung sounds bilaterally. Absent: respiratory distress, wheezes, rales, rhonchi, stridor Cardiovascular Exam: Present: regular rate, normal rhythm, normal heart sounds. Absent: systolic murmur, diastolic murmur, rubs, gallop, clicks GI/Abdominal exam: Present: soft, normal bowel sounds. Absent: distended, tenderness, guarding, rebound, rigid External exam: Present: normal external exam. Absent: erythema, swelling, lesions, lacerations, ecchymosis Speculum exam: Present: normal speculum exam, vaginal bleeding. Absent: vaginal discharge, laceration Extremities exam: Present: normal inspection, full ROM, normal capillary refill. Absent: tenderness, pedal edema, joint swelling, calf tenderness Back exam: Present: normal inspection Neurological exam: Present: alert, oriented X3, CN II-XII intact Psychiatric exam: Present: normal affect, normal mood Skin exam: Present: warm, dry, intact, normal color. Absent: rash Course Vital Signs 03/14/19 11:07 Temperature 98.6 F Pulse Rate 75 Respiratory 16 Rate Blood Pressure 118/64 O2 Sat by Pulse 100 Oximetry Medical Decision Making - Medical Decision Making Upon arrival the patient is placed into room 21. A thorough history and physical exam is performed. Laboratory studies were conducted and the patient was sent for an ultrasound. CBC shows a hemoglobin of 14.1. PT is 10.1, INR 0.9. Beta Quant is 17,606. UA is negative. Blood type is O+. Ultrasound demonstrates intrauterine gestational sac and yolk sac are seen however no pole. Considerations for an embryonic , early normal intrauterine or spontaneous . The patient appears slightly low-lying in the uterus. Moderate narrowing with short term follow-up ultrasound recommended. I did discuss his results with the patient. I did perform a pelvic exam which demonstrates a small amount of blood in the vagina. Cervix is closed. At this time she'll be discharged home. She needs to follow-up in the outpatient lab on Sunday for blood draw. I did write the patient a prescription. The results will be sent to Dr. Blank's office. She has an ultrasound scheduled for the . She is to keep this appointment. If she has any new or worsening symptoms she should return to the emergency room. Patient was then discharged with stable condition - Lab Data Result diagrams: 03/14/19 11:45 03/14/19 11:45 Lab Results 03/14/19 03/14/19 03/14/19 Range/Units 11:45 11:45 11:45 WBC 7.9 (3.8-10.6) k/uL RBC 5.12 (3.80-5.40) m/uL Hgb 14.1 (11.4-16.0) gm/dL Hct 43.6 (34.0-46.0) % MCV 85.2 (80.0-100.0) fL MCH 27.5 (25.0-35.0) pg MCHC 32.3 (31.0-37.0) g/dL RDW 13.2 (11.5-15.5) % Plt Count 219 (150-450) k/uL Neutrophils % 69 % Lymphocytes % 23 % Monocytes % 4 % Eosinophils % 2 % Basophils % 0 % Neutrophils # 5.4 (1.3-7.7) k/uL Lymphocytes # 1.8 (1.0-4.8) k/uL Monocytes # 0.3 (0-1.0) k/uL Eosinophils # 0.2 (0-0.7) k/uL Basophils # 0.0 (0-0.2) k/uL PT (9.0-12.0) sec INR (<1.2) APTT (22.0-30.0) sec Sodium 137 (137-145) mmol/L Potassium 4.1 (3.5-5.1) mmol/L Chloride 103 (98-107) mmol/L Carbon Dioxide 26 (22-30) mmol/L Anion Gap 8 mmol/L BUN 8 (7-17) mg/dL Creatinine 0.52 (0.52-1.04) mg/dL Est GFR (CKD-EPI)AfAm >90 (>60 ml/min/1.73 sqM) Est GFR (CKD-EPI)NonAf >90 (>60 ml/min/1.73 sqM) Glucose 76 (74-99) mg/dL Calcium 9.3 (8.4-10.2) mg/dL Total Bilirubin 0.5 (0.2-1.3) mg/dL AST 25 (14-36) U/L ALT 22 (9-52) U/L Alkaline Phosphatase 45 (38-126) U/L Total Protein 7.2 (6.3-8.2) g/dL Albumin 4.5 (3.5-5.0) g/dL HCG, Quant 32076.4 mIU/mL Urine Color Urine Appearance (Clear) Urine pH (5.0-8.0) Ur Specific [place] (1.001-1.035) Urine Protein (Negative) Urine Glucose (UA) (Negative) Urine Ketones (Negative) Urine Blood (Negative) Urine Nitrite (Negative) Urine Bilirubin (Negative) Urine Urobilinogen (<2.0) mg/dL Ur Leukocyte Esterase (Negative) Blood Type O Positive Blood Type Recheck O Pos Bld Type Recheck Status No 03/14/19 03/14/19 Range/Units 11:45 13:30 WBC (3.8-10.6) k/uL RBC (3.80-5.40) m/uL Hgb (11.4-16.0) gm/dL Hct (34.0-46.0) % MCV (80.0-100.0) fL MCH (25.0-35.0) pg MCHC (31.0-37.0) g/dL RDW (11.5-15.5) % Plt Count (150-450) k/uL Neutrophils % % Lymphocytes % % Monocytes % % Eosinophils % % Basophils % % Neutrophils # (1.3-7.7) k/uL Lymphocytes # (1.0-4.8) k/uL Monocytes # (0-1.0) k/uL Eosinophils # (0-0.7) k/uL Basophils # (0-0.2) k/uL PT 10.1 (9.0-12.0) sec INR 0.9 (<1.2) APTT 27.3 (22.0-30.0) sec Sodium (137-145) mmol/L Potassium (3.5-5.1) mmol/L Chloride (98-107) mmol/L Carbon Dioxide (22-30) mmol/L Anion Gap mmol/L BUN (7-17) mg/dL Creatinine (0.52-1.04) mg/dL Est GFR (CKD-EPI)AfAm (>60 ml/min/1.73 sqM) Est GFR (CKD-EPI)NonAf (>60 ml/min/1.73 sqM) Glucose (74-99) mg/dL Calcium (8.4-10.2) mg/dL Total Bilirubin (0.2-1.3) mg/dL AST (14-36) U/L ALT (9-52) U/L Alkaline Phosphatase (38-126) U/L Total Protein (6.3-8.2) g/dL Albumin (3.5-5.0) g/dL HCG, Quant mIU/mL Urine Color Colorless Urine Appearance Clear (Clear) Urine pH 6.0 (5.0-8.0) Ur Specific [place] 1.002 (1.001-1.035) Urine Protein Negative (Negative) Urine Glucose (UA) Negative (Negative) Urine Ketones Negative (Negative) Urine Blood Negative (Negative) Urine Nitrite Negative (Negative) Urine Bilirubin Negative (Negative) Urine Urobilinogen <2.0 (<2.0) mg/dL Ur Leukocyte Esterase Negative (Negative) Blood Type Blood Type Recheck Bld Type Recheck Status Disposition Clinical Impression: Bleeding in early Disposition: HOME SELF-CARE Condition: Stable Instructions (If sedation given, give patient instructions): Threatened Miscarriage (ED) Additional Instructions: Please follow-up with your [employer] within 5-7 days for repeat ultrasound. Come to the outpatient lab on Sunday to have a repeat blood draw. Return to the emergency room for any new or worsening symptoms Is patient prescribed a controlled substance at d/c from ED?: No Referrals: Ce Hylton MD [Primary Care Provider] - 1-2 days Time of Disposition: 14:09
== END 2019-03-14 14:24 | disposition home or self-care (01) ==
LOC: EC 10:48
DX: O20.9 Hemorrhage in early pregnancy, unspecified (principal); Z67.40 Type O blood, Rh positive; O99.331 Smoking (tobacco) complicating pregnancy, first trimester; F17.200 Nicotine dependence, unspecified, uncomplicated; Z79.3 Long term (current) use of hormonal contraceptives; Z98.890 Other specified postprocedural states; Z3A.01 Less than 8 weeks gestation of pregnancy
CPT/HCPCS: 36415; 76801; 80053; 81003; 84702; 85025; 85610; 85730; 86900; 86901; 99284

== ENCOUNTER → 2019-03-17 | Outpatient (CLI) | payer OTHER | END | disposition home or self-care (01) | LOC: LABWHC1 15:20 | PROVIDERS: ATTEND Family Medicine | DX: O26.851 Spotting complicating pregnancy, first trimester (principal) | CPT/HCPCS: 36415; 84702 ==

== ENCOUNTER → 2019-04-11 | Outpatient (CLI) | payer OTHER ==
--- NOTE | 2019-04-13 20:43 | US ---
EXAMINATION TYPE: Ultrasound OB <= 14 week fetus DATE OF EXAM: 04/11/2019 4:43 PM COMPARISON: NONE CLINICAL HISTORY: 23-year-old female Z36 Confirm Dates. [place] vaginal bleeding; EXAM PERFORMED: Transabdominal (TA) FINDINGS: EXAM MEASUREMENTS: GESTATIONAL AGE / DATING Physician Established: (9 weeks/2 days) EDC: 11/12/2019 Dates by LMP: (9 weeks/2 days) EDC: 11/12/2019 Dates by First Scan: (9 weeks/2 days) EDC: 11/12/2019 Dates by Current Scan for: (9 weeks/2 days) EDC: 11/12/2019 MATERNAL ANATOMY Uterus: 12.9 x 8.3 x 5.8cm Right Ovary: 2.8 x 2.3 x 2.2cm Left Ovary: 3.0 x 1.8 x 2.3cm Post CDS / Adnexa: wnl Presence of free fluid: no Presence of corpus luteal cyst: in right ovary = 1.4 x 1.5 x 1.5cm Presence of subchorionic bleed: no GESTATION / SURVEY CRL: 26.cm (9 weeks/2 days) Yolk Sac (normal less than 6mm): 4.3mm Heart Rate: 175 bpm Rhythm: Normal IUP: Viable IUP Date of LMP: 02/05/2019 Beta HcG (if available): NA Single, live IUP, 9 weeks/2 days, EDC: 11/12/2019, [id number]. IMPRESSION: 1. Single live intrauterine with estimated gestational age of 9 weeks 2 days by LMP. Curren t ultrasound biometry is exactly concordant by crown-rump length. 2. Consider short interval follow-up given borderline increased heart rate of 175 BPM. 3. Otherwise, complete survey recommended at 18-20 weeks.
== END ==
LOC: RADUSWWP 16:11
PROVIDERS: ATTEND Obstetrics & Gynecology
DX: Z36.89 Encounter for other specified antenatal screening (principal); Z3A.09 9 weeks gestation of pregnancy
CPT/HCPCS: 76801

== ENCOUNTER → 2019-10-31 | Outpatient (CLI) | payer OTHER | END | disposition home or self-care (01) | LOC: LABWHC1 10:47 | PROVIDERS: ATTEND Obstetrics & Gynecology | DX: Z11.59 Encounter for screening for other viral diseases (principal) | CPT/HCPCS: 87635 ==

== ENCOUNTER 2019-11-05 06:09 | Inpatient (IN) | payer OTHER ==
[2019-11-04 12:13] VITALS: BMI 28.3
[2019-11-05] MEDS ORDERED: CITRIC ACID-SODIUM CITRATE 15 ML CUP PO ONE (06:36)
[2019-11-05 06:56] LABS: Basophils % (A) 0 %; Eosinophils # (A) 0.1 k/uL (0-0.7); Eosinophils % (A) 1 %; HCT 32.8 % (34.0-46.0); HGB 10.4 gm/dL (11.4-16.0); Hypochromasia Slight; Lymphocytes # (A) 1.8 k/uL (1.0-4.8); Lymphocytes % (A) 19 %; MCH 26.1 pg (25.0-35.0); MCHC 31.6 g/dL (31.0-37.0); MCV 82.4 fL (80.0-100.0); Monocytes # (A) 0.4 k/uL (0-1.0); Monocytes % (A) 4 %; Neutrophils % (A) 74 %; Platelet Count 159 k/uL (150-450); RBC 3.98 m/uL (3.80-5.40); RDW 14.1 % (11.5-15.5); WBC 9.4 k/uL (3.8-10.6)
[2019-11-05] MEDS: LACTATED RINGERS 1,000 ML IV SCH ×4 (07:25→20:53)
--- NOTE | 2019-11-05 07:31 | P.HPOB ---
History of Present Illness H&P Date: 11/05/19 Chief Complaint: Repeat low transverse with tubal ligation 24-year-old presents at 39 weeks for repeat low transverse with tubal ligation. Review of Systems All systems: negative Constitutional: Denies chills, Denies fever Eyes: denies blurred vision, denies pain Ears, nose, mouth and throat: Denies headache, Denies sore throat Cardiovascular: Denies chest pain, Denies shortness of breath Respiratory: Denies cough Gastrointestinal: Denies abdominal pain, Denies diarrhea, Denies nausea, Denies vomiting Genitourinary: Denies dysuria, Denies hematuria Musculoskeletal: Denies myalgias Integumentary: Denies pruritus, Denies rash Neurological: Denies numbness, Denies weakness Psychiatric: Denies anxiety, Denies depression Endocrine: Denies fatigue, Denies weight change Past Medical History Past Medical History: No Reported History Additional Past Medical History / Comment(s): History of genital herpes., occ. heart palpitations, c-diff (2016)., heart burn while , sciatica pain.,. 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 This is her fourth and she's had care with me since first trimester. Blood type is O+, antibodies negative, HIV nonreactive, rubella immune, RPR nonreactive, hepatitis B negative, toxoplasma negative. History of Any Multi-Drug Resistant Organisms: None Reported Date of last positivie culture/infection: 2015 Past Surgical History: Section Additional Past Surgical History / Comment(s): D&C Past Anesthesia/Blood Transfusion Reactions: No Reported Reaction Past Psychological History: ADD/ADHD Additional Psychological History / Comment(s): . Smoking Status: Former smoker Past Alcohol Use History: None Reported Additional Past Alcohol Use History / Comment(s): quit smoking 2019- approx 2 months after . smoked <ppd., started smoking age 18. Past Drug Use History: Marijuana Additional Drug Use History / Comment(s): no current marijuana, - Past Family History Father Family Medical History: No Reported History Additional Family Medical History / Comment(s): 2 stent placements Medications and Allergies Home Medications Medication Instructions Recorded Confirmed Type Iron 45 mg PO DAILY 11/04/19 11/05/19 History Pnv No.95/Ferrous Fum/Folic AC 1 each PO DAILY 11/04/19 11/05/19 History [ Multivitamin Tablet] Allergies Allergy/AdvReac Type Severity Reaction Status Date / Time CLEAR ADHESIVE FOR IV COVER AdvReac Unknown RASH, Uncoded 11/05/19 06:34 IRRITATED SKIN. Exam Osteopathic Statement: *. No significant issues noted on an osteopathic structural exam other than those noted in the History and Physical/Consult. Vital Signs Temp Pulse Resp BP 11/05/19 06:21 98.7 F 90 16 133/79 Intake and Output 11/04/19 11/05/19 11/05/19 22:59 06:59 14:59 Other: Weight 63.503 kg Heart: Regular rate and rhythm Lungs: Clear to auscultation bilaterally Abdomen: Soft, nontender Extremities: Negative Homans sign Results Result Diagrams: 11/05/19 06:45 Abnormal Lab Results - Last 24 Hours (Table) 11/05/19 Range/Units 06:45 Hgb 10.4 L (11.4-16.0) gm/dL Hct 32.8 L (34.0-46.0) % Assessment and Plan (1) Previous section Current Visit: Yes Status: Acute Code(s): Z98.891 - HISTORY OF UTERINE SCAR FROM PREVIOUS SURGERY SNOMED Code(s): 422386222 (2) Family planning Current Visit: Yes Status: Acute Code(s): Z30.09 - ENCOUNTER FOR OTH GENERAL CNSL AND ADVICE ON CONTRACEPTION SNOMED Code(s): 753401807 Plan: 1. Repeat low transverse with tubal ligation we did review all risks and alternatives of this procedure including that the tubal ligation is not a reversible procedure.
[2019-11-05] MEDS ORDERED: OXYTOCIN 10 UNIT/ML 1 ML VIAL ONE (07:51)
[2019-11-05] MEDS ORDERED: KETOROLAC 30 MG/ML 1 ML VIAL ONE (07:51)
[2019-11-05] MEDS ORDERED: MORPHINE SULFATE (PF) 0.3 MG/0.3 ML SYR ONE (07:51)
[2019-11-05] MEDS ORDERED: fentaNYL (PF) 50 MCG/ML 2 ML AMP ONE (07:51)
[2019-11-05] MEDS ORDERED: MIDAZOLAM 2 MG/2 ML VIAL ONE (07:51)
[2019-11-05] MEDS ORDERED: ACETAMINOPHEN TAB 325 MG TAB PO PRN (08:39)
[2019-11-05] MEDS ORDERED: diphenhydrAMINE 50 MG/ML 1 ML VIAL IVP PRN ×2 (08:39)
[2019-11-05] MEDS ORDERED: ZOLPIDEM 5 MG TAB PO PRN (08:39)
[2019-11-05] MEDS ORDERED: diphenhydrAMINE 25 MG CAP PO PRN (08:39)
[2019-11-05] MEDS ORDERED: METOCLOPRAMIDE 5 MG/ML 2 ML VIAL IVP PRN (08:39)
[2019-11-05] MEDS ORDERED: NALOXONE 0.4 MG/ML 1 ML VIAL IV PRN ×2 (08:39→08:41)
[2019-11-05] MEDS ORDERED: ONDANSETRON 4 MG/2 ML VIAL IVP PRN (08:39)
[2019-11-05] MEDS ORDERED: diphenhydrAMINE 50 MG CAP PO PRN (08:39)
[2019-11-05] MEDS ORDERED: MORPHINE SULFATE 2 MG/ML SYRINGE IVP PRN (08:41)
[2019-11-05] MEDS: KETOROLAC 30 MG/ML 1 ML VIAL IVP PRN ×2 (11:53→20:24)
--- NOTE | 2019-11-05 13:09 | P.OP ---
Date of Procedure: 11/05/19 Preoperative Diagnosis: 1. Previous section 2. Family planning 3. at 39 weeks Postoperative Diagnosis: 1. Previous section 2. Family planning 3. at 39 weeks Procedure(s) Performed: Repeat low transverse with tubal ligation Anesthesia: spinal Surgeon: Winter Blank Jumpbasting Canvas Baster #1: Bobbi Pena Estimated Blood Loss (ml): 600 IV fluids (ml): 1,000 Urine output (ml): 100 Pathology: other (Segments of bilateral fallopian tubes) Condition: stable Disposition: floor Operative Findings: Viable female, Apgars 8, 9, weight 6 lbs. 14 oz. normal uterus, tubes, ovaries Description of Procedure: Patient was taken to the operating room where spinal anesthesia was found be adequate. She was prepped and draped in normal sterile fashion in dorsal supine position with a leftward tilt. Pfannenstiel skin incision was made the scalpel and carried through to the underlying layer of fascia with the scalpel. Fascia was incised in midline and carried bilaterally with the Tello scissors. The superior aspect of the fascial incision was grasped with Jed clamps elevated and the underlying rectus muscles dissected off with the Tello's. Attention was then turned to inferior aspect of same incision which in a similar fashion was grasped tented up and the underlying rectus muscles dissected off with the Tello's. The rectus muscles were the midline and the peritoneum was identified tented up and entered sharply with the scalpel. The incision was extended superiorly and inferiorly with good visualization of the bladder. The bladder blade was inserted and the vesicouterine peritoneum was incised the Metzenbaums then carried bilaterally and bladder flap created digitally. A low transverse incision was then made on the uterus with the scalpel. This was carried bilaterally and digital manner. 's head delivered atraumatically, nose and mouth bulb suctioned, cord clamped and cut, infant handed off to waiting nurses. Apgars 8,9, weight 6 lbs. 14 oz. Placenta delivered manually, intact with three-vessel cord. The uterus is exteriorized and cleared of all clots and debris. The uterine incision was closed with 0 Vicryl in a running locked fashion. Second layer of the same sutures used in imbricating fashion to obtain excellent hemostasis. Bladder flap was then reapproximated using 2-0 Vicryl in a running fashion. Both ovaries and tubes appeared normal. The right fallopian tube was grasped with a hemostat and a window was made in the mesosalpinx with the Bovie. The right fallopian tube was doubly ligated and a segment was removed. The pedicles were cauterized with the Bovie. The left fallopian tube was grasped with a hemostat and a window was made in the mesosalpinx with the Bovie. The left fallopian tube was doubly ligated and a segment was removed. The uterus was placed back into the abdomen. The peritoneum was reapproximated using 2-0 Vicryl in a running fashion. The muscles were reapproximated using 2-0 Vicryl in interrupted fashion. The fascia was reapproximated using 0 Vicryl in a running fashion. The subcutaneous tissues closed with 3-0 Vicryl running fashion. The skin was closed ghazal. Patient tolerated the procedure well, sponge and instrument counts were correct times 2 and she was taken to the recovery room in stable condition.
[2019-11-05] MEDS: SENNOSIDES-DOCUSATE SODIUM 1 EACH TAB PO SCH (20:53)
[2019-11-06] MEDS: LACTATED RINGERS 1,000 ML IV SCH (02:41)
[2019-11-06 06:15] LABS: Basophils % (A) 0 %; Eosinophils # (A) 0.1 k/uL (0-0.7); Eosinophils % (A) 1 %; HCT 24.6 % (34.0-46.0); Hypochromasia Slight; Lymphocytes # (A) 1.7 k/uL (1.0-4.8); Lymphocytes % (A) 17 %; MCHC 33.8 g/dL (31.0-37.0); MCV 82.7 fL (80.0-100.0); Mean Platelet Volume 10.6; Monocytes # (A) 0.4 k/uL (0-1.0); Monocytes % (A) 4 %; Neutrophils # (A) 7.7 k/uL (1.3-7.7); Neutrophils % (A) 77 %; Platelet Count 129 k/uL (150-450); RBC 2.98 m/uL (3.80-5.40); RDW 14.3 % (11.5-15.5); WBC 10.1 k/uL (3.8-10.6)
[2019-11-06 06:30] LABS: HGB 8.3 gm/dL (11.4-16.0)
--- NOTE | 2019-11-06 06:49 | P.PN ---
Progress Note - Text Progress Note Date: 11/06/19 Postoperative day 1 status post section under spinal anesthesia, and i ntrathecal morphine given for postoperative analgesia, patient doing well, there is no anesthesia related complications, Patient had no headache, vital signs stable , Assessment and plan= postop day 1 status post , doing well there is no anesthesia related complication.
--- NOTE | 2019-11-06 07:16 | P.PNOBGPC ---
Subjective - Subjective Principal diagnosis: Status post repeat low transverse with tubal ligation Interval history: Patient seen and examined. Denies nausea, vomiting, chest pain, shortness of breath or any calf pain. Patient reports: Reports appetite normal, Reports voiding normally, Reports pain well controlled, Reports ambulating normally Wolf: doing well Objective - Vital Signs Latest vital signs: Vital Signs Temp Pulse Resp BP Pulse Ox 11/06/19 04:00 98.1 F 90 14 104/57 98 11/06/19 02:00 14 11/06/19 00:00 97.9 F 84 14 119/56 98 11/05/19 22:00 14 11/05/19 20:00 97.9 F 81 16 104/44 98 11/05/19 16:00 98 F 74 15 118/59 98 11/05/19 15:00 15 11/05/19 12:11 16 11/05/19 11:47 97.6 F 69 16 132/65 97 11/05/19 10:40 16 11/05/19 10:33 75 16 104/51 99 11/05/19 10:05 97.1 F L 66 16 127/58 98 11/05/19 09:45 80 16 125/68 98 11/05/19 09:31 67 16 125/62 98 11/05/19 09:17 78 16 121/56 100 11/05/19 09:01 71 16 128/66 99 11/05/19 08:42 97.6 F 93 16 142/74 98 Intake and Output 11/05/19 11/06/19 11/06/19 22:59 06:59 14:59 Output Total 1300 Balance -1300 Output: Urine 1300 Uretheral ([place]) 600 Other: # Voids 1 1 - Exam Lungs: bilateral: normal Chest: Normal S1, Normal S2 Extremities: Present: normal Abdomen: Present: normal appearance, soft. Absent: distention, tenderness Incision: Present: normal, dry, intact Uterus: Present: normal, firm - Labs Labs: Abnormal Lab Results - Last 24 Hours (Table) 11/06/19 Range/Units 05:52 RBC 2.98 L (3.80-5.40) m/uL Hgb 8.3 L D (11.4-16.0) gm/dL Hct 24.6 L (34.0-46.0) % Plt Count 129 L (150-450) k/uL Assessment and Plan (1) Previous section Current Visit: Yes Status: Resolved Code(s): Z98.891 - HISTORY OF UTERINE SCAR FROM PREVIOUS SURGERY SNOMED Code(s): 093202553 (2) Family planning Current Visit: Yes Status: Resolved Code(s): Z30.09 - ENCOUNTER FOR OT GENERAL CNSL AND ADVICE ON CONTRACEPTION SNOMED Code(s): 890196427 (3) Status post repeat low transverse section Current Visit: Yes Status: Acute Code(s): Z98.891 - HISTORY OF UTERINE SCAR FROM PREVIOUS SURGERY SNOMED Code(s): 918265372 (4) Status post tubal ligation at time of delivery, current hosp Current Visit: Yes Status: Acute Code(s): O80 - ENCOUNTER FOR FULL-TERM UNCOMPLICATED DELIVERY; Z30.2 - ENCOUNTER FOR STERILIZATION SNOMED Code(s): 032969638 Plan: 1. Increase ambulation 2. By mouth pain medication 3. Regular diet
[2019-11-06] MEDS: IBUPROFEN 600 MG TAB PO PRN ×2 (08:54→18:04)
[2019-11-06] MEDS: SENNOSIDES-DOCUSATE SODIUM 1 EACH TAB PO SCH ×2 (08:54→19:37)
[2019-11-06] MEDS: HYDROcodone/APAP 7.5-325MG 1 EACH TAB PO PRN ×2 (13:17→23:16)
[2019-11-07] MEDS: IBUPROFEN 600 MG TAB PO PRN ×2 (04:39→12:49)
--- NOTE | 2019-11-07 07:49 | P.DS ---
Providers Date of admission: 11/05/19 06:09 Expected date of discharge: 11/07/19 Attending physician: Winter Blank Primary care physician: Stated None - Discharge Diagnosis(es) (1) Previous section Current Visit: Yes Status: Resolved (2) Family planning Current Visit: Yes Status: Resolved (3) Status post repeat low transverse section Current Visit: Yes Status: Acute (4) Status post tubal ligation at time of delivery, current hosp Current Visit: Yes Status: Acute Hospital Course: Patient presented for repeat low transverse and tubal ligation. She underwent this procedure without complication. Her postoperative course was uncomplicated. She'll be discharged home postoperative day #2 in stable condition to follow-up with me in one week. Plan - Discharge Summary Discharge Rx Participant: Yes New Discharge Prescriptions: New Ibuprofen [Motrin] 600 mg PO Q6HR PRN #30 tab PRN Reason: Mild Pain Or Fever >= 100.5 HYDROcodone/APAP 7.5-325MG [[place] 7.5-325] 1 each PO Q6H PRN #12 tab PRN Reason: Pain No Action Pnv No.95/Ferrous Fum/Folic AC [ Multivitamin Tablet] 1 each PO DAILY Iron 45 mg PO DAILY Discharge Medication List Iron 45 mg PO DAILY 11/04/19 [History] Pnv No.95/Ferrous Fum/Folic AC [ Multivitamin Tablet] 1 each PO DAILY 11/04/19 [History] HYDROcodone/APAP 7.5-325MG [[place] 7.5-325] 1 each PO Q6H PRN #12 tab 11/07/19 [Rx] Ibuprofen [Motrin] 600 mg PO Q6HR PRN #30 tab 11/07/19 [Rx] Follow up Appointment(s)/Referral(s): Winter Blank DO [Doctor of Osteopathic Medicine] - 1 Week Discharge Disposition: HOME SELF-CARE
[2019-11-07] MEDS: SENNOSIDES-DOCUSATE SODIUM 1 EACH TAB PO SCH (08:49)
[2019-11-07] MEDS: HYDROcodone/APAP 7.5-325MG 1 EACH TAB PO PRN (08:49)
[2019-11-07 10:27] VITALS: BP 131/83; PULSE 92; RESP 16; TEMP 98.2
== END 2019-11-07 14:45 | disposition home or self-care (01) | DRG 785 ==
LOC: 4FBP 06:09
PROVIDERS: ADMIT Obstetrics & Gynecology; ATTEND Obstetrics & Gynecology
PROC: 10D00Z1 Extraction of Products of Conception, Low, Open Approach (ICD-10-PCS; principal; 2019-11-05 08:00)
PROC: 0UB70ZZ Excision of Bilateral Fallopian Tubes, Open Approach (ICD-10-PCS; principal; 2019-11-05 08:00)
DX: O34.211 Maternal care for low transverse scar from previous cesarean delivery (principal); N85.8 Other specified noninflammatory disorders of uterus; Z30.2 Encounter for sterilization; O99.344 Other mental disorders complicating childbirth; F90.9 Attention-deficit hyperactivity disorder, unspecified type; Z37.0 Single live birth; Z3A.39 39 weeks gestation of pregnancy; Z79.899 Other long term (current) drug therapy; Z86.19 Personal history of other infectious and parasitic diseases; Z98.890 Other specified postprocedural states; Z87.891 Personal history of nicotine dependence
CPT/HCPCS: 85025; 86850; 86900; 86901; 88302

== ENCOUNTER 2020-01-06 21:59 | Emergency (ER) | payer OTHER ==
[2020-01-06] MEDS ORDERED: ACETAMINOPHEN TAB 500 MG TAB PO STA (22:11)
[2020-01-06] MEDS ORDERED: SODIUM CHLORIDE 0.9% 1,000 ML IV STA (22:14)
--- NOTE | 2020-01-06 22:18 | ED ---
General Adult HPI - General Chief complaint: Skin/Abscess/Foreign Body Stated complaint: Possible Mastitis Time Seen by Provider: 01/06/20 22:11 Source: patient Mode of arrival: ambulatory Limitations: no limitations - History of Present Illness Initial comments: Dictation was produced using [employer] dictation software. please excuse any grammatical, word or spelling errors. This patient was cared for during a federal and state declared state of emergency secondary to Covid 19 Chief Complaint: 24-year-old female presents with left breast pain History of Present Illness: 24-year-old female she is 2 months . Patient is currently breast-feeding. Patient states that she is been feeling worsening left breast pain over the last 12-24 hours. She breast feeds exclusively. She hasn't been palpated breastmilk until today. She was popping when she noted that there was purulent drainage. Patient states she's been feeling fevers all day today. Denies any cough. No shortness of breath. No abdominal pain. The ROS documented in this emergency department record has been reviewed and confirmed by me. Those systems with pertinent positive or negative responses have been documented in the HPI. All other systems are other negative and/or noncontributory. PHYSICAL EXAM: General Impression: Alert and oriented x3, not in acute distress HEENT: Normocephalic atraumatic, extra-ocular movements intact, pupils equal and reactive to light bilaterally, mucous membranes moist. Cardiovascular: Heart regular rate and rhythm Breast exam: Engorged and indurated left breast. Induration is worse in the 2 o'clock position. Chest: Able to complete full sentences, no retractions, no tachypnea Abdomen: abdomen soft, non-tender, non-distended, no organomegaly Musculoskeletal: Pulses present and equal in all extremities, no peripheral edema Motor: no focal deficits noted Neurological: CN II-XII grossly intact, no focal motor or sensory deficits noted Skin: Intact with no visualized rashes Psych: Normal affect and mood ED course: 24 yo old female clinical presentation consistent with lactational mastitis. All signs upon arrival shows temperature of 103.2, heart rate of 121, worse vital signs within acceptable limits. Laboratory evaluation obtained. CBC is unremarkable. Metabolic panel is negative. Patient vital signs improved. Patient does not have any risk factors for MRSA. Patient given 1 dose of ceftriaxone. Patient prescription for Keflex. She is told to follow-up with her dispatcher motor vehicle for outpatient management of mastitis. Patient's vital signs are improved after administration of Tylenol and intravenous fluids. Return parameters discussed. - Related Data Home Medications Medication Instructions Recorded Confirmed Iron 45 mg PO DAILY 11/04/19 11/05/19 Pnv No.95/Ferrous Fum/Folic AC 1 each PO DAILY 11/04/19 11/05/19 [ Multivitamin Tablet] Previous Rx's Medication Instructions Recorded HYDROcodone/APAP 7.5-325MG [[place] 1 each PO Q6H PRN #12 tab 11/07/19 7.5-325] Ibuprofen [Motrin] 600 mg PO Q6HR PRN #30 tab 11/07/19 Cephalexin [Keflex] 500 mg PO Q6HR 5 Days #20 cap 01/06/20 Allergies Allergy/AdvReac Type Severity Reaction Status Date / Time CLEAR ADHESIVE FOR IV COVER AdvReac Unknown RASH, Uncoded 01/06/20 22:08 IRRITATED SKIN. Review of Systems ROS Statement: Those systems with pertinent positive or pertinent negative responses have been documented in the HPI. ROS Other: All systems not noted in ROS Statement are negative. Past Medical History Past Medical History: No Reported History Additional Past Medical History / Comment(s): History of genital herpes., occ. heart palpitations, c-diff (2016)., heart burn while , sciatica pain.,. 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 This is her fourth and she's had care with me since first trimester. Blood type is O+, antibodies negative, HIV nonreactive, rubella immune, RPR nonreactive, hepatitis B negative, toxoplasma negative. History of Any Multi-Drug Resistant Organisms: None Reported Date of last positivie culture/infection: 2015 Past Surgical History: Section Additional Past Surgical History / Comment(s): D&C Past Anesthesia/Blood Transfusion Reactions: No Reported Reaction Past Psychological History: ADD/ADHD Smoking Status: Vaper Past Alcohol Use History: None Reported Past Drug Use History: Marijuana - Past Family History Father Family Medical History: No Reported History Additional Family Medical History / Comment(s): 2 stent placements General Exam Limitations: no limitations Course Vital Signs 01/06/20 01/06/20 01/06/20 22:06 22:56 23:23 Temperature 103.2 F H 100.1 F H Pulse Rate 121 H 113 H 108 H Respiratory 18 20 Rate Blood Pressure 113/67 121/84 O2 Sat by Pulse 97 97 Oximetry Medical Decision Making - Lab Data Result diagrams: 01/06/20 22:19 01/06/20 22:21 Lab Results 01/06/20 01/06/20 Range/Units 22:19 22:21 WBC 9.2 (3.8-10.6) k/uL RBC 4.83 (3.80-5.40) m/uL Hgb 12.2 D (11.4-16.0) gm/dL Hct 39.0 (34.0-46.0) % MCV 80.8 (80.0-100.0) fL MCH 25.3 (25.0-35.0) pg MCHC 31.3 (31.0-37.0) g/dL RDW 13.6 (11.5-15.5) % Plt Count 157 (150-450) k/uL Neutrophils % 82 % Lymphocytes % 10 % Monocytes % 4 % Eosinophils % 2 % Basophils % 0 % Neutrophils # 7.6 (1.3-7.7) k/uL Lymphocytes # 0.9 L (1.0-4.8) k/uL Monocytes # 0.3 (0-1.0) k/uL Eosinophils # 0.2 (0-0.7) k/uL Basophils # 0.0 (0-0.2) k/uL Sodium 134 L (137-145) mmol/L Potassium 3.8 (3.5-5.1) mmol/L Chloride 102 (98-107) mmol/L Carbon Dioxide 23 (22-30) mmol/L Anion Gap 9 mmol/L BUN 9 (7-17) mg/dL Creatinine 0.68 (0.52-1.04) mg/dL Est GFR (CKD-EPI)AfAm >90 (>60 ml/min/1.73 sqM) Est GFR (CKD-EPI)NonAf >90 (>60 ml/min/1.73 sqM) Glucose 106 H (74-99) mg/dL Calcium 8.8 (8.4-10.2) mg/dL Disposition Clinical Impression: Mastitis Disposition: HOME SELF-CARE Instructions (If sedation given, give patient instructions): Mastitis (ED) Additional Instructions: Please take Motrin and Tylenol for fever, pain and swelling. Youre encouraged to provide cold compresses to also help in reducing swelling. It is important that you empty breastmilk from the left breast which can be accomplished with breast pumping or breast-feeding from the affected breast. youre prescribed antibiotics however in certain cases he may need antibiotic changes. Please follow-up with your dispatcher motor vehicle for outpatient management of status. Prescriptions: Cephalexin [Keflex] 500 mg PO Q6HR 5 Days #20 cap Is patient prescribed a controlled substance at d/c from ED?: No Referrals: Ce Hylton MD [Primary Care Provider] - 1-2 days Winter Blank DO [Doctor of Osteopathic Medicine] - 1-2 days Time of Disposition: 23:30
[2020-01-06 22:28] LABS: Basophils % (A) 0 %; Eosinophils # (A) 0.2 k/uL (0-0.7); Eosinophils % (A) 2 %; Lymphocytes # (A) 0.9 k/uL (1.0-4.8); Lymphocytes % (A) 10 %; MCH 25.3 pg (25.0-35.0); MCHC 31.3 g/dL (31.0-37.0); MCV 80.8 fL (80.0-100.0); Mean Platelet Volume 7.3; Monocytes # (A) 0.3 k/uL (0-1.0); Monocytes % (A) 4 %; Neutrophils # (A) 7.6 k/uL (1.3-7.7); Neutrophils % (A) 82 %; Platelet Count 157 k/uL (150-450); RBC 4.83 m/uL (3.80-5.40); RDW 13.6 % (11.5-15.5); WBC 9.2 k/uL (3.8-10.6)
[2020-01-06 22:36] LABS: African American GFR (CKD) >90 (>60 ml/min/1.73 sqM); Anion Gap 9 mmol/L; Blood Urea Nitrogen 9 mg/dL (7-17); Calcium 8.8 mg/dL (8.4-10.2); Carbon Dioxide 23 mmol/L (22-30); Chloride 102 mmol/L (98-107); Glucose 106 mg/dL (74-99); Non-African American GFR(CKD) >90 (>60 ml/min/1.73 sqM); Potassium 3.8 mmol/L (3.5-5.1); Sodium 134 mmol/L (137-145)
[2020-01-06 22:39] LABS: HGB 12.2 gm/dL (11.4-16.0)
[2020-01-06] MEDS ORDERED: cefTRIAXone IN SWFI 1,000 MG/10 ML SYRINGE IVP STA (22:50)
[2020-01-06 22:58] VITALS: BP 121/84; RESP 20
[2020-01-06 23:23] VITALS: PULSE 108; TEMP 100.1
== END 2020-01-06 23:43 | disposition home or self-care (01) ==
LOC: EC 21:59
DX: N61.0 Mastitis without abscess (principal); F17.290 Nicotine dependence, other tobacco product, uncomplicated; Z91.048 Other nonmedicinal substance allergy status
CPT/HCPCS: 36415; 80048; 85025; 99283; 96374; 96361; J0696

== ENCOUNTER 2020-12-31 14:14 | Emergency (ER) | payer OTHER ==
[2020-12-31 14:32] VITALS: BP 125/69; PULSE 74; RESP 18; TEMP 98.3
--- NOTE | 2020-12-31 15:25 | ED ---
General Adult HPI - General Chief complaint: Skin/Abscess/Foreign Body Stated complaint: pcp sent for ultrasound Source: patient, RN notes reviewed Mode of arrival: ambulatory Limitations: no limitations - History of Present Illness Initial comments: 25-year-old white female, well-appearing and alert and oriented 4, presents to the emergency room with complaints of right breast pain. She states that she feels some lumps to contact her primary care doctor and was seen was told to come to the emergency room for evaluation of possible mastitis. She states that her doctor did call in a prescription for Keflex but wanted the ultrasound done today. Patient states she has not had a fever. This never happened to her before. She is a smoker. No other medical history. -: days(s) (2) Location: right Radiation: non-radiation (Breasts) Severity scale (1-10): 0 Quality: other (Tenderness) Consistency: constant Improves with: none Worsens with: none Associated Symptoms: other (Stopped breast-feeding 3 weeks ago) Treatments Prior to Arrival: none - Related Data Home Medications Medication Instructions Recorded Confirmed Iron 45 mg PO DAILY 11/04/19 11/05/19 Pnv No.95/Ferrous Fum/Folic AC 1 each PO DAILY 11/04/19 11/05/19 [ Multivitamin Tablet] Previous Rx's Medication Instructions Recorded HYDROcodone/APAP 7.5-325MG [[place] 1 each PO Q6H PRN #12 tab 11/07/19 7.5-325] Ibuprofen [Motrin] 600 mg PO Q6HR PRN #30 tab 11/07/19 Cephalexin [Keflex] 500 mg PO Q6HR 5 Days #20 cap 01/06/20 Allergies Allergy/AdvReac Type Severity Reaction Status Date / Time CLEAR ADHESIVE FOR IV COVER AdvReac Unknown RASH, Uncoded 01/06/20 22:08 IRRITATED SKIN. Review of Systems ROS Statement: Those systems with pertinent positive or pertinent negative responses have been documented in the HPI. ROS Other: All systems not noted in ROS Statement are negative. Past Medical History Past Medical History: No Reported History Additional Past Medical History / Comment(s): History of genital herpes., occ. heart palpitations, c-diff (2016)., heart burn while , sciatica pain.,. 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 This is her fourth and she's had care with me since first trimester. Blood type is O+, antibodies negative, HIV nonreactive, rubella immune, RPR nonreactive, hepatitis B negative, toxoplasma negative. History of Any Multi-Drug Resistant Organisms: None Reported, C-DIFF Date of last positivie culture/infection: 2015 MDRO Source:: stool Past Surgical History: Section Additional Past Surgical History / Comment(s): D&C, x 2 Past Anesthesia/Blood Transfusion Reactions: No Reported Reaction Past Psychological History: ADD/ADHD Smoking Status: Vaper Past Alcohol Use History: Occasional Past Drug Use History: Marijuana - Past Family History Father Family Medical History: No Reported History Additional Family Medical History / Comment(s): 2 stent placements General Exam Limitations: no limitations General appearance: alert, in no apparent distress Head exam: Present: atraumatic, normocephalic, normal inspection Eye exam: Present: normal appearance, PERRL, EOMI. Absent: scleral icterus, conjunctival injection, periorbital swelling ENT exam: Present: normal exam, normal oropharynx, mucous membranes moist Neck exam: Present: normal inspection, full ROM. Absent: tenderness, meningismus, lymphadenopathy, thyromegaly Respiratory exam: Present: normal lung sounds bilaterally. Absent: respiratory distress, wheezes, rales, rhonchi, stridor, chest wall tenderness, accessory muscle use, decreased breath sounds, prolonged expiratory Cardiovascular Exam: Present: regular rate, normal rhythm, normal heart sounds. Absent: systolic murmur, diastolic murmur, rubs, gallop, clicks GI/Abdominal exam: Present: soft, normal bowel sounds. Absent: distended, tenderness, guarding, rebound, rigid Extremities exam: Present: normal inspection, full ROM, normal capillary refill. Absent: tenderness, pedal edema, joint swelling, calf tenderness Back exam: Present: normal inspection, full ROM. Absent: tenderness, CVA tenderness (R), CVA tenderness (L), muscle spasm, paraspinal tenderness, vertebral tenderness, rash noted Neurological exam: Present: alert, oriented X3, CN II-XII intact Psychiatric exam: Present: normal affect, normal mood Skin exam: Present: warm, dry, intact, normal color, other (Approximately 2 cm mass felt in the upper right quadrant of the right breast.). Absent: rash Course Vital Signs 12/31/20 14:26 Temperature 98.3 F Pulse Rate 74 Respiratory 18 Rate Blood Pressure 125/69 O2 Sat by Pulse 99 Oximetry Medical Decision Making - Medical Decision Making There is extensive ductal ectasia identified without focal lesion seen this is consistent with recent breast-feeding history. Patient will be directed to take the antibiotic that Dr. Richardson her primary doctor prescribed and follow-up in 1 week. Disposition Clinical Impression: Mastitis Disposition: HOME SELF-CARE Condition: Good Instructions (If sedation given, give patient instructions): Mastitis (ED) Additional Instructions: Warm compresses to breast intake antibiotics as prescribed by your primary care doctor. Follow-up next week with your primary and return to the emergency room with increasing pain, redness, swelling or fevers. Is patient prescribed a controlled substance at d/c from ED?: No Referrals: Ce Hylton MD [Primary Care Provider] - 1-2 days Time of Disposition: 16:32
--- NOTE | 2020-12-31 16:15 | USB ---
EXAMINATION TYPE: US breast complete RT DATE OF EXAM: 12/31/2020 COMPARISON: NONE CLINICAL HISTORY: pain poss mastitis. Findings: All 4 quadrants of the right breast were scanned with ultrasound. The retroareolar region and right a xilla were also scanned with ultrasound. There is extensive ductal ectasia identified without focal lesion seen. Skin thickening is noted. IMPRESSION: There is extensive ductal ectasia identified without focal lesion seen. This is consistent with recen t breast-feeding history. There is skin thickening. Please correlate for possible mastoiditis. Clinic al follow-up is recommended. BI-RADS 2, benign. Screening mammogram beginning at age 40 is recommended.
== END 2020-12-31 16:56 | disposition home or self-care (01) ==
LOC: EC 14:14
DX: N61.0 Mastitis without abscess (principal); F17.290 Nicotine dependence, other tobacco product, uncomplicated; F12.90 Cannabis use, unspecified, uncomplicated; Z79.1 Long term (current) use of non-steroidal anti-inflammatories (NSAID)
CPT/HCPCS: 99283

== ENCOUNTER → 2021-05-23 | Outpatient (CLI) | payer OTHER ==
[~2021-05-23] MED LIST changes: +BAMLANIVIMAB (EUA) 700 MG, ETESEVIMAB (EUA) 1,400 MG in SODIUM CHLORIDE 0.9% 50 ML IVPB NR; -Pre Op ABX Message 1 EACH MISC MISCELLANE ONE; +SODIUM CHLORIDE 0.9% 50 ML IVPB NR; +SODIUM CHLORIDE 0.9% 500 ML 500 ML in EMPTY BAG 1 BAG IV PRN
== END ==
LOC: PROCWHC3 10:09
PROVIDERS: ATTEND Family Medicine
DX: Z53.9 Procedure and treatment not carried out, unspecified reason (principal)

== ENCOUNTER → 2022-01-16 | Outpatient (CLI) | payer OTHER ==
--- NOTE | 2022-01-16 18:20 | XR ---
EXAMINATION TYPE: XR Hip Complete RT DATE OF EXAM: 01/16/2022 5:34 PM INDICATION: Patient age:Female; 26 years old; Reason for study: M25. 559; [facility]. COMPARISON: None. TECHNIQUE: The right hip was examined in the frontal and lateral projections FINDINGS: No evidence for acute process, joint dislocation or significant soft tissue swelling. IMPRESSION: No acute process.
== END | disposition home or self-care (01) ==
LOC: RADXRMAIN 17:09
PROVIDERS: ATTEND Emergency Medicine
DX: M25.551 Pain in right hip (principal)
CPT/HCPCS: 73502

== ENCOUNTER 2023-10-26 22:37 | Emergency (ER) | payer OTHER ==
--- NOTE | 2023-10-26 23:46 | ED ---
General Adult HPI - General Chief complaint: Skin/Abscess/Foreign Body Stated complaint: foreign object Time Seen by Provider: 10/26/23 23:03 Source: patient Mode of arrival: ambulatory Limitations: no limitations - History of Present Illness Initial comments: 28-year-old female presenting with chief complaint of sewing needle stuck in her nipple. Patient previously had nipple piercings which she removed for breast- feeding. She states that yesterday she attempted to repierce the area with a sewing needle. She was unable to remove the nail yesterday, she attempted to take a hot shower and soak the area with a hot rag however she was still unable to remove the needle. - Related Data Home Medications Medication Instructions Recorded Confirmed Iron 45 mg PO DAILY 11/04/19 11/05/19 Pnv No.95/Ferrous Fum/Folic AC 1 each PO DAILY 11/04/19 11/05/19 [ Multivitamin Tablet] Previous Rx's Medication Instructions Recorded HYDROcodone/APAP 7.5-325MG [[place] 1 each PO Q6H PRN #12 tab 11/07/19 7.5-325] Ibuprofen [Motrin] 600 mg PO Q6HR PRN #30 tab 11/07/19 Cephalexin [Keflex] 500 mg PO Q6HR 5 Days #20 cap 01/06/20 Cephalexin [Keflex] 500 mg PO Q6HR 5 Days #20 cap 10/27/23 Allergies Allergy/AdvReac Type Severity Reaction Status Date / Time CLEAR ADHESIVE FOR IV COVER AdvReac Unknown RASH, Uncoded 10/26/23 22:45 IRRITATED SKIN. Review of Systems ROS Statement: Those systems with pertinent positive or pertinent negative responses have been documented in the HPI. ROS Other: All systems not noted in ROS Statement are negative. Past Medical History Past Medical History: No Reported History Additional Past Medical History / Comment(s): History of genital herpes., occ. heart palpitations, c-diff (2016)., heart burn while , sciatica pain.,. 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 This is her fourth and she's had care with me since first trimester. Blood type is O+, antibodies negative, HIV nonreactive, rubella immune, RPR nonreactive, hepatitis B negative, toxoplasma negative. History of Any Multi-Drug Resistant Organisms: None Reported, C-DIFF Date of last positivie culture/infection: 2015 MDRO Source:: stool Past Surgical History: Section Additional Past Surgical History / Comment(s): D&C, x 2 Past Anesthesia/Blood Transfusion Reactions: No Reported Reaction Past Psychological History: ADD/ADHD Smoking Status: Current every day smoker, Vaper Past Alcohol Use History: Occasional Past Drug Use History: Marijuana - Past Family History Father Family Medical History: No Reported History Additional Family Medical History / Comment(s): 2 stent placements General Exam Limitations: no limitations General appearance: alert, in no apparent distress Head exam: Present: atraumatic, normocephalic Eye exam: Present: normal appearance, EOMI Neck exam: Present: normal inspection. Absent: meningismus Respiratory exam: Absent: respiratory distress Cardiovascular Exam: Present: regular rate Neurological exam: Present: alert, oriented X3 Psychiatric exam: Present: normal affect, normal mood Skin exam: Present: other (sewing needle stuck in L nipple) Course Vital Signs 10/26/23 10/27/23 22:41 00:25 Temperature 99.0 F 98.8 F Pulse Rate 83 80 Respiratory 20 18 Rate Blood Pressure 130/94 128/90 O2 Sat by Pulse 100 100 Oximetry Medical Decision Making - Medical Decision Making Was pt. sent in by a medical professional or institution ([facility], [facility], urgent care, hospital, or [facility]...) When possible be specific @ -No Did you speak to anyone other than the patient for history (EMS, parent, family, police, friend...)? What history was obtained from this source @ -No Did you review nursing and triage notes (agree or disagree)? Why? @ -I reviewed and agree with nursing and triage notes Were old charts reviewed (outside hosp., previous admission, EMS record, old EKG, old radiological studies, urgent care reports/EKG's, [facility] records)? Report findings @ -No old charts were reviewed Differential Diagnosis (chest pain, altered mental status, abdominal pain women, abdominal pain men, vaginal bleeding, weakness, fever, dyspnea, syncope, headache, dizziness, GI bleed, back pain, seizure, CVA, palpatations, mental health, musculoskeletal)? @ -Not applicable EKG interpreted by me (3pts min.). @ -As above X-rays interpreted by me (1pt min.). @ -None done CT interpreted by me (1pt min.). @ -None done U/S interpreted by me (1pt. min.). @ -None done What testing was considered but not performed or refused? (CT, X-rays, U/S, labs)? Why? @ -None What meds were considered but not given or refused? Why? @ -None Did you discuss the management of the patient with other professionals (professionals i.e. , PA, [employer], lab, RT, psych nurse, social security assessor, fabric awning repairer, teacher, commissioned police officer, case planner)? Give summary @ -No Was smoking cessation discussed for >3mins.? @ -No Was critical care preformed (if so, how long)? @ -No Were there social determinants of health that impacted care today? How? (Homelessness, low income, unemployed, alcoholism, drug addiction, transportation, low edu. Level, literacy, decrease access to med. care, intermediate, rehab)? @ -No Was there de-escalation of care discussed even if they declined (Discuss DNR or withdrawal of care, Hospice)? DNR status @ -No What co-morbidities impacted this encounter? (DM, HTN, Smoking, COPD, CAD, Cancer, CVA, ARF, Chemo, Hep., AIDS, mental health diagnosis, sleep apnea, morbid obesity)? @ -None Was patient admitted / discharged? Hospital course, mention meds given and r oute, prescriptions, significant lab abnormalities, going to OR and other pertinent info. @ -28 female presenting with chief complaint of sewing needle stuck through her nipple piercing. Patient was attempting to repierce her left nipple yesterday when the sewing needle was unable to be dislodged. She tried throughout the today as well to remove it but was unsuccessful. Ice and cold rag were applied. Small amount of lubricant was used and the needle was successfully removed. Patient is started on Keflex. Discharged home. Follow-up with PCP. Report back to ER with any new or worsening symptoms. Discussed return parameters and answered all questions. Patient conveyed verbal understanding and agreed to the plan. I discussed this case in detail with my attending Dr. Adhikari Undiagnosed new problem with uncertain prognosis? @ -No Drug Therapy requiring intensive monitoring for toxicity (Heparin, Nitro, Insulin, Cardizem)? @ -No Were any procedures done? @ -No Diagnosis/symptom? @ -Soft tissue foreign body Acute, or Chronic, or Acute on Chronic? @ -Acute Uncomplicated (without systemic symptoms) or Complicated (systemic symptoms)? @ -Uncomplicated Side effects of treatment? @ -No Exacerbation, Progression, or Severe Exacerbation? @ -No Poses a threat to life or bodily function? How? (Chest pain, [place], [place], pneumonia, PE, COPD, DKA, ARF, appy, cholecystitis, CVA, Diverticulitis, Homicidal, Suicidal, threat to staff... and all critical care pts) @ -No Disposition Clinical Impression: Soft tissues foreign body Disposition: HOME SELF-CARE Condition: Good Instructions (If sedation given, give patient instructions): Soft Tissue Foreign Body (ED) Additional Instructions: Follow-up with your PCP. Report back to ER with any new or worsening symptoms. Take medication as prescribed. Take Motrin and Tylenol as needed for pain control. Alternate heat and ice as needed for pain control. Prescriptions: Cephalexin [Keflex] 500 mg PO Q6HR 5 Days #20 cap Is patient prescribed a controlled substance at d/c from ED?: No Referrals: Ce Hylton MD [Primary Care Provider] - 1-2 days Time of Disposition: 00:15
[2023-10-27 01:15] VITALS: BP 128/90; PULSE 80; RESP 18; TEMP 98.8
== END 2023-10-27 00:28 | disposition home or self-care (01) ==
LOC: EC 22:37
DX: S20.159A Superficial foreign body of breast, unspecified breast, initial encounter (principal); F17.290 Nicotine dependence, other tobacco product, uncomplicated; Z88.8 Allergy status to other drugs, medicaments and biological substances; W45.8XXA Other foreign body or object entering through skin, initial encounter
CPT/HCPCS: 99282